=== PATIENT | female | born 1960 | race Caucasian/White ===

== ENCOUNTER 2017-05-14 20:28 | Emergency (ER) | payer OTHER ==
[~2017-05-14] VITALS: Ht 154.9 cm; Wt 71.2 kg
[~2017-05-14 20:28] MED LIST: GLIP10TA3 PO; METF1000 PO
[2017-05-14 20:45] VITALS: BP 130/67
--- NOTE | 2017-05-14 20:59 | NUR ---
Patient being taken to XRAY via wheelchair per tech.
--- NOTE | 2017-05-14 21:10 | NUR ---
Patient taken to bed 06 from XRAY via wheelchair per tech.
--- NOTE | 2017-05-14 21:15 | NUR ---
PATIENT PRESENTS TO ED WITH C/O RT LEG PAIN . PT DENIES N/V/D; SKIN IS PINK/WARM/DRY; AAOX4 WITH EVEN AND STEADY GAIT; LUNGS CLEAR BL; HR EVEN AND REGULAR; PT DENIES ANY FEVER, CP, SOB, OR COUGH AT THIS TIME; PATIENT STATES PAIN OF 9/10 AT THIS TIME; VSS; PATIENT POSITIONED FOR COMFORT; HOB ELEVATED; BEDRAILS UP X2; BED DOWN. ER MD MADE AWARE OF PT STATUS.
--- NOTE | 2017-05-14 22:03 | NUR ---
Dr. Arenas evaluating patient at bedside.
[2017-05-14] MEDS ORDERED: IBUPROFEN 600 MG TAB PO ONE (22:10)
--- NOTE | 2017-05-14 22:25 | NUR ---
Patient discharged with v/s stable. Written and verbal after care instructions given and explained. Patient alert, oriented and verbalized understanding of instructions. Ambulatory with to car. All questions addressed prior to discharge. ID band removed. Patient advised to follow up with PMD. Rx of MOTRIN given. Patient educated on indication of medication including possible reaction and side effects. Opportunity to ask questions provided and answered.
[2017-05-14 22:49] VITALS: BP 130/67
== END 2017-05-14 22:25 | disposition home or self-care (01) ==
LOC: MED 20:28
DX: S43.51XA Sprain of right acromioclavicular joint, initial encounter (principal); S83.91XA Sprain of unspecified site of right knee, initial encounter; S93.401A Sprain of unspecified ligament of right ankle, initial encounter; E11.9 Type 2 diabetes mellitus without complications; Z79.84 Long term (current) use of oral hypoglycemic drugs; W19.XXXA Unspecified fall, initial encounter; Y93.89 Activity, other specified; Y92.89 Other specified places as the place of occurrence of the external cause; Y99.8 Other external cause status
CPT/HCPCS: 73030; 73562; 73610; 99284

== ENCOUNTER 2017-05-28 21:01 | Emergency (ER) | payer OTHER ==
[~2017-05-28] VITALS: Ht 154.9 cm; Wt 69.4 kg
[2017-05-28 21:25] VITALS: BP 138/71
--- NOTE | 2017-05-28 23:02 | NUR ---
TO ER BED 7
--- NOTE | 2017-05-28 23:19 | NUR ---
Patient being evaluated by physician at bedside.
--- NOTE | 2017-05-28 23:30 | NUR ---
56Y/F PT. PERSENTS TO ED WITH C/O RT. LEG WOUND X 3 WKS. HX. DM. AAO X4, AMBULATORY WITH STEADY GAIT. RT. LEG CHRONIC WOUND, NO DRAINAGE. C/O PAIN 06/10. VSS, ER MADE AWARE OF PT. STATUS.
--- NOTE | 2017-05-29 | NUR ---
Patient discharged with v/s stable. Written and verbal after care instructions given and explained. Patient alert, oriented and verbalized understanding of instructions. Ambulatory with steady gait. All questions addressed prior to discharge. ID band removed. Patient advised to follow up with PMD. Rx of HYDROCORTISONE 2.5% TOPICAL OINTMENT, BACTRIM DS 800/160 MG given. Patient educated on indication of medication including possible reaction and side effects. Opportunity to ask questions provided and answered.
[2017-05-29 00:07] VITALS: BP 138/71
== END 2017-05-29 | disposition home or self-care (01) ==
LOC: MED 21:01
DX: L03.115 Cellulitis of right lower limb (principal); R03.0 Elevated blood-pressure reading, without diagnosis of hypertension; E11.9 Type 2 diabetes mellitus without complications
CPT/HCPCS: 82948; 99283

== ENCOUNTER 2017-09-08 22:39 | Emergency (ER) | payer OTHER ==
[~2017-09-08] VITALS: Ht 154.9 cm; Wt 76.0 kg
[2017-09-08 22:54] VITALS: BP 146/74
--- NOTE | 2017-09-08 23:50 | NUR ---
TO ER OF1
--- NOTE | 2017-09-08 23:52 | NUR ---
56Y F BIB FAMILY C/O RASH TO LOWER AB X 15 DAYS. PT DENIES ANY N/V/D, SOB, CP AT THE MOMENT; PT STATES AREA IS ITCHY. 3/10 PAIN. PT AAOX4, BREATHING IS EVEN AND UNLABORED. PT AMBULATED TO OF CHAIR WITH STEADY GAIT
[2017-09-09 00:04] LABS: BASOPHILS # (AUTO) 0.1 K/uL (0.00-0.22); BASOPHILS % (AUTO) 1.2 % (0.0-2.0); EOSINOPHILS # (AUTO) 0.1 K/uL (0-0.4); EOSINOPHILS % (AUTO) 1.3 % (0.0-4.0); HEMATOCRIT 41.1 % (36-48); LYMPHOCYTES # (AUTO) 2.2 K/uL (2.5-16.5); LYMPHOCYTES % (AUTO) 22.5 % (20.5-51.1); MEAN CORPUSCULAR HEMOGLOBIN 29 pg (27-31); MEAN CORPUSCULAR HGB CONC 34 g/dL (33-37); MEAN CORPUSCULAR VOLUME 84 fL (80-94); MONOCYTES # (AUTO) 0.6 K/uL (0.8-1.0); NEUTROPHILS # (AUTO) 6.7 K/uL (1.8-7.7); PLATELET COUNT (AUTO) 260 K/uL (140-450); RED BLOOD CELL COUNT(AUTO) 4.88 MIL/uL (4.20-5.40); RED CELL DISTRIBUTION WIDTH 12.7 % (11.6-13.7); WHITE BLOOD COUNT (AUTO) 9.7 K/uL (4.8-10.8)
[2017-09-09 00:25] LABS: ALBUMIN 3.6 g/dL (3.4-5.0); ANION GAP 12.2 (8-16); CARBON DIOXIDE 24.7 mmol/L (21-32); CREATININE 0.8 mg/dL (0.6-1.3); POTASSIUM 3.9 mmol/L (3.5-5.1); TOTAL BILIRUBIN 0.3 mg/dL (0.0-1.0)
[2017-09-09 01:05] LABS: APPEARANCE,URINE CLEAR (CLEAR); BILIRUBIN,URINE NEGATIVE (NEGATIVE); BLOOD, URINE NEGATIVE (NEGATIVE); COLOR,URINE YELLOW (YELLOW); LEUKOCYTE ESTERASE ,URINE NEGATIVE (NEGATIVE); NITRITE, URINE NEGATIVE (NEGATIVE); UGLUCOSE 3+ (NEGATIVE)
[2017-09-09 01:18] LABS: RBC,URINE 0-5 (RARE) /HPF (0-5); WBC,URINE 0-5 (RARE) /HPF (0-5)
--- NOTE | 2017-09-09 01:19 | NUR ---
MOVED PT TO ER BED 2
--- NOTE | 2017-09-09 02:25 | NUR ---
Patient discharged with v/s stable. Written and verbal after care instructions given and explained. Patient alert, oriented and verbalized understanding of instructions. Ambulatory with steady gait. All questions addressed prior to discharge. ID band removed. Patient advised to follow up with PMD. Rx of CLOTRIMAZOLE 1% CRM given. Patient educated on indication of medication including possible reaction and side effects. Opportunity to ask questions provided and answered.
[2017-09-09 02:26] VITALS: BP 121/72
== END 2017-09-09 02:26 | disposition home or self-care (01) ==
LOC: MED 22:39
DX: B37.89 Other sites of candidiasis (principal); E11.9 Type 2 diabetes mellitus without complications; F17.210 Nicotine dependence, cigarettes, uncomplicated; Z90.49 Acquired absence of other specified parts of digestive tract; Z79.4 Long term (current) use of insulin; Z79.899 Other long term (current) drug therapy
CPT/HCPCS: 36415; 80053; 81001; 82948; 83690; 85025; 99284

== ENCOUNTER 2017-10-07 17:54 | Emergency (ER) | payer OTHER ==
[~2017-10-07] VITALS: Ht 157.5 cm; Wt 73.0 kg
[2017-10-07 19:29] VITALS: BP 115/65
[2017-10-07] MEDS ORDERED: BACITRACIN OINT 500 UNITS/GM PKT TP ONE (23:33)
[2017-10-08 01:11] VITALS: BP 118/73
== END 2017-10-08 01:11 | disposition home or self-care (01) ==
LOC: MED 17:54
DX: L60.0 Ingrowing nail (principal); E11.9 Type 2 diabetes mellitus without complications
CPT/HCPCS: 11730; 99283

== ENCOUNTER 2017-10-15 04:40 | Emergency (ER) | payer OTHER ==
[~2017-10-15] VITALS: Ht 154.9 cm; Wt 71.2 kg
[2017-10-15 04:47] VITALS: BP 120/71
--- NOTE | 2017-10-15 04:56 | NUR ---
PT TAKEN TO BED 2
[2017-10-15] MEDS ORDERED: DIAZEPAM PFS 10 MG/2 ML SYR IM ONE (05:05)
--- NOTE | 2017-10-15 05:05 | NUR ---
PT C/O CHEST PAIN S/P GETTING ANGRY AT DAUGHTER. PT IS TEARFUL AND STATES SHE IS "ANGRY W/ DAUGHTER FOR NOT EATING OR SLEEPING". PAIN IS SEVERE TO CHEST, NON RADIATING, 07/10. PT DENIES SOB, N/V/D. PT POSITIONED FOR COMFORT, ER MD AWARE OF PT STATUS.
[2017-10-15] MEDS ORDERED: DIAZEPAM PFS 10 MG/2 ML SYR ONE (05:17)
[2017-10-15 05:55] VITALS: BP 100/65
--- NOTE | 2017-10-15 05:55 | NUR ---
Patient discharged with v/s stable. Written and verbal after care instructions given and explained. Patient alert, oriented and verbalized understanding of instructions. Ambulatory with steady gait. All questions addressed prior to discharge. ID band removed. Patient advised to follow up with PMD. Rx of VALIUM 5MG given. Patient educated on indication of medication including possible reaction and side effects. Opportunity to ask questions provided and answered.
== END 2017-10-15 05:55 | disposition home or self-care (01) ==
LOC: MED 04:40
DX: F41.9 Anxiety disorder, unspecified (principal); E11.9 Type 2 diabetes mellitus without complications; Z79.84 Long term (current) use of oral hypoglycemic drugs; Z79.899 Other long term (current) drug therapy
CPT/HCPCS: 93005; 96372; 99283; J3360

== ENCOUNTER 2017-11-24 02:21 | Emergency (ER) | payer OTHER ==
[~2017-11-24] VITALS: Ht 154.9 cm; Wt 71.2 kg
[2017-11-24 02:31] VITALS: BP 115/56
--- NOTE | 2017-11-24 02:37 | NUR ---
pt ambulated to er bed 01
--- NOTE | 2017-11-24 02:37 | NUR ---
56/F CAME IN W C/O PRODUCTIVE COUGH X 4 DAYS. PT REPORTS WHITE PHLEGM, DENIES SOB/CP, FEVER/CHILLS, DENIES N/V/D. ALL LUNG SOUNDS CBTA, 18RR EVEN AND UNLABORED. PMH: DM
[2017-11-24 02:53] LABS: APPEARANCE,URINE HAZY (CLEAR); BILIRUBIN,URINE NEGATIVE (NEGATIVE); BLOOD, URINE NEGATIVE (NEGATIVE); COLOR,URINE YELLOW (YELLOW); LEUKOCYTE ESTERASE ,URINE NEGATIVE (NEGATIVE); NITRITE, URINE POSITIVE (NEGATIVE); UGLUCOSE 3+ (NEGATIVE)
[2017-11-24 03:09] LABS: RBC,URINE 0-5 (RARE) /HPF (0-5); YEAST,URINE Few /HPF (None Seen)
--- NOTE | 2017-11-24 03:30 | NUR ---
Patient discharged with v/s stable. Written and verbal after care instructions given and explained. Patient alert, oriented and verbalized understanding of instructions. Ambulatory with steady gait. All questions addressed prior to discharge. ID band removed. Patient advised to follow up with PMD. Rx of IBUPROFEN, CODEINE/PROMETHAZINE AND CIPROFLAXACIN given. Patient educated on indication of medication including possible reaction and side effects. Opportunity to ask questions provided and answered.
[2017-11-24 03:32] VITALS: BP 123/76
--- NOTE | 2017-11-26 16:00 | NUR ---
ADDENDUM: URINE CX RESULTS:E. COLI,MDRO. REFERRED TO DR. CASTILLO. NO FARTHER TX., PATIENT DISCHARGED WITH PRESCRIPTION OF CIPRO
== END 2017-11-24 03:30 | disposition home or self-care (01) ==
LOC: MED 02:21
DX: J06.9 Acute upper respiratory infection, unspecified (principal); N39.0 Urinary tract infection, site not specified; F17.210 Nicotine dependence, cigarettes, uncomplicated; E11.9 Type 2 diabetes mellitus without complications; Z90.49 Acquired absence of other specified parts of digestive tract; Z79.84 Long term (current) use of oral hypoglycemic drugs; Z79.899 Other long term (current) drug therapy
CPT/HCPCS: 71045; 81001; 81025; 82948; 87086; 87186; 99285

== ENCOUNTER 2018-08-29 15:44 | Emergency (ER) | payer OTHER ==
[~2018-08-29] VITALS: Ht 160 cm; Wt 89.8 kg
[2018-08-29 15:57] VITALS: BP 141/93
[2018-08-29] MEDS: NACL 0.9% 1,000 ML IV ONE ×2 (16:35→17:50)
[2018-08-29] MEDS: ASPIRIN 81 MG TAB.CHEW PO ONE (16:35)
[2018-08-29 17:01] LABS: BASOPHILS # (AUTO) 0.1 K/uL (0.00-0.22); BASOPHILS % (AUTO) 0.7 % (0.0-2.0); EOSINOPHILS # (AUTO) 0.1 K/uL (0-0.4); EOSINOPHILS % (AUTO) 1.6 % (0.0-4.0); HEMATOCRIT 42.3 % (36-48); HEMOGLOBIN 14.2 g/dL (12.0-16.0); LYMPHOCYTES % (AUTO) 24.1 % (20.5-51.1); MEAN CORPUSCULAR HEMOGLOBIN 29 pg (27-31); MEAN CORPUSCULAR HGB CONC 34 g/dL (33-37); MEAN CORPUSCULAR VOLUME 85.5 fL (80-94); MONOCYTES # (AUTO) 0.5 K/uL (0.8-1.0); MONOCYTES % (AUTO) 6.4 % (1.7-9.3); NEUTROPHILS # (AUTO) 5.6 K/uL (1.8-7.7); NEUTROPHILS % (AUTO) 67.2 % (42.2-75.2); PLATELET COUNT (AUTO) 240 K/uL (140-450); RED BLOOD CELL COUNT(AUTO) 4.95 MIL/uL (4.20-5.40); RED CELL DISTRIBUTION WIDTH 13.4 % (11.6-13.7); WHITE BLOOD COUNT (AUTO) 8.4 K/uL (4.8-10.8)
[2018-08-29 17:24] LABS: ALBUMIN 3.5 g/dL (3.4-5.0); ANION GAP 16.9 (8-16); CARBON DIOXIDE 24.7 mmol/L (21-32); CREATININE 0.7 mg/dL (0.6-1.3); POTASSIUM 4.6 mmol/L (3.5-5.1); TOTAL BILIRUBIN 0.4 mg/dL (0.0-1.0)
[2018-08-29 17:26] LABS: PROTHROMBIN TIME 9.7 secs (10.8-13.4)
[2018-08-29] MEDS: INSULIN REGULAR, HUMAN 100 UNIT/ML VIAL IV ONE (18:10)
[2018-08-29 18:40] VITALS: BP 137/82
== END 2018-08-29 18:40 | disposition home or self-care (01) ==
LOC: MED 15:44
DX: E11.65 Type 2 diabetes mellitus with hyperglycemia (principal); Z79.84 Long term (current) use of oral hypoglycemic drugs
CPT/HCPCS: 36415; 71045; 80053; 82948; 84484; 85025; 85610; 85730; 93005; 96361; 96374; 99284; J1815; J7030; Q0092; 81002

== ENCOUNTER 2018-11-03 19:21 | Emergency (ER) | payer OTHER ==
[~2018-11-03] VITALS: Ht 154.9 cm; Wt 71.2 kg
[2018-11-03 19:26] VITALS: BP 132/66
--- NOTE | 2018-11-03 19:33 | NUR ---
PT AMBULATED TO LOBBY WITH VSS.
--- NOTE | 2018-11-03 19:51 | NUR ---
PT AMBULATED TO BED 12.
--- NOTE | 2018-11-03 19:54 | NUR ---
PT BIB FAMILY FOR L EYE PAIN X2 DAYS. PT REPORTS ITCHY PAIN AT 7/10. R EYE IS RED WITH THICK WHITE DRAINAGE VISIBIBLE NEAR LACRIMAL DUCT. NO FORIENG OBJECT VISIBLE IN EYE, PERRLA. PT REPORTS DM II, AND STATES HER LAST BS WAS 600 AFTER SHE ATE. PT RESPIRATORY RATE SYMMETRICAL, NON-LABORED. PT DENIES FREQUENT URINATION. ER MD TO SEE PT. SIDE RAIL UP X1, BED IN LOWEST POSITION, WILL CONTINUE TO MONITOR. MEDHX: DM II RX: INSULIN, METFORMIN, GLIPIZIDE
[2018-11-03 20:46] VITALS: BP 132/66
--- NOTE | 2018-11-03 20:46 | NUR ---
Patient discharged with v/s stable. Written and verbal after care instructions given and explained. Patient alert, oriented and verbalized understanding of instructions. Ambulatory with steady gait. All questions addressed prior to discharge. ID band removed. Patient advised to follow up with PMD. Rx of valtrex and ciproflaxacin given. Patient educated on indication of medication including possible reaction and side effects. Opportunity to ask questions provided and answered.
== END 2018-11-03 20:46 | disposition home or self-care (01) ==
LOC: MED 19:21
DX: H10.9 Unspecified conjunctivitis (principal); A60.09 Herpesviral infection of other urogenital tract; E11.9 Type 2 diabetes mellitus without complications; Z79.84 Long term (current) use of oral hypoglycemic drugs
CPT/HCPCS: 82948; 99283

== ENCOUNTER 2019-01-11 21:35 | Emergency (ER) | payer OTHER ==
[~2019-01-11] VITALS: Ht 160 cm; Wt 72.1 kg
[2019-01-11 21:45] VITALS: BP 147/67
[2019-01-11 22:16] LABS: APPEARANCE,URINE CLEAR (CLEAR); BILIRUBIN,URINE NEGATIVE (NEGATIVE); BLOOD, URINE NEGATIVE (NEGATIVE); COLOR,URINE YELLOW (YELLOW); LEUKOCYTE ESTERASE ,URINE NEGATIVE (NEGATIVE); NITRITE, URINE POSITIVE (NEGATIVE); UGLUCOSE 3+ (NEGATIVE)
[2019-01-11 22:38] LABS: RBC,URINE 0-5 /HPF (0-5)
[2019-01-11 22:39] LABS: URINE AMORPHOUS URATE 1+ /HPF (None Seen)
[2019-01-11 22:50] LABS: BASOPHILS # (AUTO) 0.1 K/uL (0.00-0.22); BASOPHILS % (AUTO) 0.7 % (0.0-2.0); EOSINOPHILS # (AUTO) 0.2 K/uL (0-0.4); EOSINOPHILS % (AUTO) 1.9 % (0.0-4.0); HEMATOCRIT 41.7 % (36-48); HEMOGLOBIN 14.2 g/dL (12.0-16.0); LYMPHOCYTES % (AUTO) 21.9 % (20.5-51.1); MEAN CORPUSCULAR HEMOGLOBIN 30 pg (27-31); MEAN CORPUSCULAR HGB CONC 34 g/dL (33-37); MEAN CORPUSCULAR VOLUME 87.3 fL (80-94); MONOCYTES # (AUTO) 0.5 K/uL (0.8-1.0); MONOCYTES % (AUTO) 5.9 % (1.7-9.3); NEUTROPHILS # (AUTO) 6.2 K/uL (1.8-7.7); NEUTROPHILS % (AUTO) 69.6 % (42.2-75.2); PLATELET COUNT (AUTO) 256 K/uL (140-450); RED BLOOD CELL COUNT(AUTO) 4.78 MIL/uL (4.20-5.40); RED CELL DISTRIBUTION WIDTH 13.5 % (11.6-13.7)
--- NOTE | 2019-01-11 23:02 | NUR ---
PT AMBULATED TO BED 12
--- NOTE | 2019-01-11 23:05 | NUR ---
PT BIB C/O ABD PAIN. PT STATES SUDDEN ONSET OF LOWER ABD PAIN X5 DAYS, 8/10 BURNING PAIN, NON RADIATIING. DENIES TRAUMA. BOWEL SOUNDS ACTIVE X4 QUAD. CHEST RISE AND FALL EQUAL BL. PT ACTING APPROPRIATLY. SKIN WARM, DRY AND INTACT. PT IN GOWN IN BED; BED IN LOWER LOCKED POSITION. ER MD AWARE OF PT STATUS. WILL CONTINUE TO MONITOR. PMH: DM RX: METFORMIN, INSULIN, GLIPIZIDE
[2019-01-11 23:17] LABS: ALBUMIN 3.7 g/dL (3.4-5.0); ANION GAP 17.6 (8-16); CARBON DIOXIDE 21.7 mmol/L (21-32); CREATININE 0.8 mg/dL (0.6-1.3); POTASSIUM 4.3 mmol/L (3.5-5.1); TOTAL BILIRUBIN 0.4 mg/dL (0.0-1.0)
--- NOTE | 2019-01-12 00:19 | NUR ---
PT BACK IN ROOM FROM CT. SAFETY PRECAUTIONS IN PLACE.
[2019-01-12] MEDS ORDERED: NACL 0.9% 2,000 ML IV ONE (00:30)
[2019-01-12] MEDS ORDERED: cefTRIAXone 1,000 MG VIAL ONE (01:02)
[2019-01-12] MEDS ORDERED: INSULIN REGULAR, HUMAN 100 UNIT/ML VIAL SUBQ ONE (01:10)
--- NOTE | 2019-01-12 03:40 | NUR ---
Patient discharged with v/s stable. Patient acting appropriatly, states 3/10 pain at this time, patient states she is ready to go home. Written and verbal after care instructions given and explained. Patient alert, oriented and verbalized understanding of instructions. Ambulatory with steady gait. All questions addressed prior to discharge. ID band removed. Patient advised to follow up with PMD. Rx of Ciprofloxacin given. Patient educated on indication of medication including possible reaction and side effects. Opportunity to ask questions provided and answered.
[2019-01-12 04:33] VITALS: BP 129/73
== END 2019-01-12 03:40 | disposition home or self-care (01) ==
LOC: MED 21:35
DX: N39.0 Urinary tract infection, site not specified (principal); E11.65 Type 2 diabetes mellitus with hyperglycemia; Z90.49 Acquired absence of other specified parts of digestive tract; Z79.84 Long term (current) use of oral hypoglycemic drugs; Z79.899 Other long term (current) drug therapy
CPT/HCPCS: 36415; 36600; 74177; 80053; 81001; 81025; 82803; 83690; 85025; 87086; 87186; 96365; 96372; 99284; J0696; J1815; J7030; Q9967

== ENCOUNTER 2019-02-07 13:32 | Emergency (ER) | payer SELFPAY ==
--- NOTE | 2019-02-07 13:45 | NUR ---
LEFT WITHOUT BEING SEEN.
[2019-02-07 14:19] VITALS: BP 138/111
--- NOTE | 2019-02-07 14:26 | NUR ---
Note undone in EDM - 02/07/19 at 1536 by [email or web address] 58 y female bib family c/o non-productive cough, right ear pain 07/10, sore throat x 5 days. pt states it hurts to swallow. lungs clear bilaterally. +redness in back of throat. vss at this time. alert and oriented. bed is down, locked, bed rail x 1, ermd to see pt. med hx:dm, htn
== END 2019-02-07 13:45 | disposition left against medical advice (07) ==
LOC: MED 13:32
DX: H92.09 Otalgia, unspecified ear (principal); Z53.21 Procedure and treatment not carried out due to patient leaving prior to being seen by health care provider

== ENCOUNTER 2019-02-07 22:09 | Emergency (ER) | payer OTHER ==
[~2019-02-07] VITALS: Ht 157.5 cm; Wt 74.4 kg
[2019-02-07 22:14] VITALS: BP 154/75
--- NOTE | 2019-02-07 22:24 | NUR ---
PT AMBULATED WITH CRUTCHES TO BED 11 WITH
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
[2019-02-07] MEDS ORDERED: KETOROLAC 60 MG/2 ML VIAL IM ONE (23:00)
--- NOTE | 2019-02-07 23:35 | NUR ---
STITCH RUBBER AT PT BEDSIDE.
--- NOTE | 2019-02-07 23:42 | NUR ---
PT AMBUALTED TO THE RESTROOM INDEPENDENTLY, PT TOLERATED WELL.
[2019-02-07 23:49] LABS: BASOPHILS % (AUTO) 0.4 % (0.0-2.0); EOSINOPHILS # (AUTO) 0.1 K/uL (0-0.4); EOSINOPHILS % (AUTO) 1.1 % (0.0-4.0); HEMATOCRIT 39.5 % (36-48); HEMOGLOBIN 13.3 g/dL (12.0-16.0); LYMPHOCYTES # (AUTO) 1.8 K/uL (2.5-16.5); LYMPHOCYTES % (AUTO) 18.1 % (20.5-51.1); MEAN CORPUSCULAR HEMOGLOBIN 29 pg (27-31); MEAN CORPUSCULAR HGB CONC 34 g/dL (33-37); MEAN CORPUSCULAR VOLUME 85.8 fL (80-94); MONOCYTES # (AUTO) 0.8 K/uL (0.8-1.0); MONOCYTES % (AUTO) 7.9 % (1.7-9.3); NEUTROPHILS # (AUTO) 7.1 K/uL (1.8-7.7); NEUTROPHILS % (AUTO) 72.5 % (42.2-75.2); PLATELET COUNT (AUTO) 255 K/uL (140-450); RED CELL DISTRIBUTION WIDTH 13.4 % (11.6-13.7); WHITE BLOOD COUNT (AUTO) 9.8 K/uL (4.8-10.8)
[2019-02-08 00:04] LABS: ANION GAP 12.4 (8-16); CARBON DIOXIDE 26.9 mmol/L (21-32); CREATININE 0.7 mg/dL (0.6-1.3); POTASSIUM 4.3 mmol/L (3.5-5.1)
[2019-02-08 00:10] LABS: ALBUMIN 3.5 g/dL (3.4-5.0); TOTAL BILIRUBIN 0.7 mg/dL (0.0-1.0)
[2019-02-08 00:11] LABS: CHOL/HDL RATIO 3.2 (1-4.5)
[2019-02-08 00:18] VITALS: BP 154/75
--- NOTE | 2019-02-08 00:18 | NUR ---
Patient was discharged by dr. may with v/s stable. Written and verbal after care instructions given and explained. Patient is alert, oriented and verbalized understanding of instructions. Ambulatory with assitance by crutches with . All questions addressed prior to discharge. ID band removed. Patient advised to follow up with PMD. Rx of naprosyn was given. Patient educated on indication of medication including possible reaction and side effects. Opportunity to ask questions provided and answered.
== END 2019-02-08 00:18 | disposition home or self-care (01) ==
LOC: MED 22:09
DX: S29.011A Strain of muscle and tendon of front wall of thorax, initial encounter (principal); M25.561 Pain in right knee; E11.9 Type 2 diabetes mellitus without complications; Z79.84 Long term (current) use of oral hypoglycemic drugs; Z90.49 Acquired absence of other specified parts of digestive tract; W19.XXXA Unspecified fall, initial encounter; Y93.89 Activity, other specified; Y92.89 Other specified places as the place of occurrence of the external cause; Y99.8 Other external cause status
CPT/HCPCS: 36415; 71250; 80053; 80061; 83880; 85025; 96372; 99284; J1885; 93005

== ENCOUNTER 2019-04-16 23:31 | Emergency (ER) | payer OTHER ==
[~2019-04-16] VITALS: Ht 160 cm; Wt 72.6 kg
[2019-04-16 23:33] VITALS: BP 100/69
--- NOTE | 2019-04-16 23:35 | NUR ---
TO LOBBY AW/ BED AMBULATORY
--- NOTE | 2019-04-16 23:35 | NUR ---
58 Y/O FEMALE PRESENTS TO ED WITH REDNESS AND SCAB TO RIGHT ACHELES. PT STATES SKIN BUBBED ON SHOE. CAUSING PAIN. NO DRAINAGE. HX DM. VSS. ER MD AWARE. CONTINUE TO MONITOR.
--- NOTE | 2019-04-17 00:03 | NUR ---
PT AMBULATED TO BED 12
--- NOTE | 2019-04-17 01:10 | NUR ---
Dr. Brown examining patient.
[2019-04-17 01:20] VITALS: BP 138/77
--- NOTE | 2019-04-17 01:20 | NUR ---
DISCHARGE PAPERS GIVEN TO PT. NO C/O PAIN. VSS. RX OF ACETAMINOPHEN AND KEFLEX GIVEN. SIDE EFFECTS EXPLAINED. INSTRUCTED TO F/U WITH PCP AND WHEN TO RETURN TO ER. PT VERBALIZED UNDERSTANDING OF DC INSTRCUTIONS. ALL QUESTIONS ANSWERED.
== END 2019-04-17 01:20 | disposition home or self-care (01) ==
LOC: MED 23:31
DX: L03.115 Cellulitis of right lower limb (principal); E11.9 Type 2 diabetes mellitus without complications; Z98.890 Other specified postprocedural states; Z79.84 Long term (current) use of oral hypoglycemic drugs; Z79.899 Other long term (current) drug therapy
CPT/HCPCS: 82948; 99283

== ENCOUNTER 2020-01-04 22:52 | Emergency (ER) | payer OTHER ==
[~2020-01-04] VITALS: Ht 160 cm; Wt 70.8 kg
[2020-01-04 23:10] VITALS: BP 135/69
[2020-01-04 23:47] VITALS: BP 135/69
--- NOTE | 2020-01-04 23:47 | NUR ---
Patient assessed, treated, and discharged by Dr Rosenthal. Patient discharged with v/s stable. Written and verbal after care instructions about cellulitis given and explained. Patient alert, oriented and verbalized understanding of instructions. Ambulatory with steady gait. All questions addressed prior to discharge. ID band removed. Patient advised to follow up with PMD. Rx of keflex given. Patient educated on indication of medication including possible reaction and side effects. Opportunity to ask questions provided and answered.
== END 2020-01-04 23:47 | disposition home or self-care (01) ==
LOC: MED 22:52
DX: L03.116 Cellulitis of left lower limb (principal); E11.9 Type 2 diabetes mellitus without complications; F17.210 Nicotine dependence, cigarettes, uncomplicated; Z79.84 Long term (current) use of oral hypoglycemic drugs; Z71.6 Tobacco abuse counseling
CPT/HCPCS: 99283

== ENCOUNTER 2020-07-12 13:44 | Emergency (ER) | payer OTHER ==
[~2020-07-12] VITALS: Ht 160 cm; Wt 72.1 kg
[2020-07-12 13:50] VITALS: BP 133/63
--- NOTE | 2020-07-12 14:00 | NUR ---
59 Y/O F C/C LEFT WRIST PAIN X 3 DAYS. PER PT DENIES TRAUMA,FALL,SX, HX. ROM LIMITED/CMS WNL. NKA. HX DM. RX INSULIN,METFORMIN. NO NVD. SIDE RAIL X1
[2020-07-12] MEDS ORDERED: KETOROLAC 30 MG/ML VIAL IM ONE (14:20)
--- NOTE | 2020-07-12 14:28 | NUR ---
PT RESTING IN BED, SIDE RAIL X1
--- NOTE | 2020-07-12 14:30 | NUR ---
RAD AT BEDSIDE
[2020-07-12 15:06] VITALS: BP 130/60
== END 2020-07-12 15:06 | disposition home or self-care (01) ==
LOC: MED 13:44
DX: M11.232 Other chondrocalcinosis, left wrist (principal); E11.9 Type 2 diabetes mellitus without complications; Z79.84 Long term (current) use of oral hypoglycemic drugs
CPT/HCPCS: 29125; 73110; 96372; 99283; J1885; Q0092

== ENCOUNTER 2020-07-13 00:39 | Emergency (ER) | payer OTHER ==
[~2020-07-13] VITALS: Ht 160 cm; Wt 72.1 kg
[2020-07-13 00:44] VITALS: BP 134/80
--- NOTE | 2020-07-13 00:46 | NUR ---
To ED bed 07
--- NOTE | 2020-07-13 00:48 | NUR ---
59 year old female coming in for c/o left wrist pain x 3 days. states pain had idiopathic source. denies any injury or trauma. LUE cap refill < 3 seconds, CMS intact. denies any other injury or trauma. awaiting MSE. pmhx: GORGE chavarria
[2020-07-13 00:50] VITALS: BP 134/80
--- NOTE | 2020-07-13 01:03 | NUR ---
Dr. Figueroa examining patient.
--- NOTE | 2020-07-13 01:12 | NUR ---
PT PLACED IM ORTHO VELCRO THUMB SPIKA SPLINT. ERMD NOTIFIED
== END 2020-07-13 01:22 | disposition home or self-care (01) ==
LOC: MED 00:39
DX: M25.532 Pain in left wrist (principal); R03.0 Elevated blood-pressure reading, without diagnosis of hypertension; E11.9 Type 2 diabetes mellitus without complications; Z79.899 Other long term (current) drug therapy
CPT/HCPCS: 99283

== ENCOUNTER 2020-07-14 21:18 | Emergency (ER) | payer OTHER ==
[~2020-07-14] VITALS: Ht 160 cm; Wt 71.3 kg
[2020-07-14 21:31] VITALS: BP 134/69
--- NOTE | 2020-07-14 21:38 | NUR ---
59 y/o female bib self for left hand/arm swelling and pain. Per patient, "The pain and swelling has gotten worse, and I was just here 3 days ago. It feels like pins". Pain is a 10/10 sharp, acute pain that starting in the left wrist and radiates to the rest of the left arm. Facial grimacing is noted when patient attempts to move fingers Left hand non-pitting edema/swelling noted on the left hand/wrist and arm compared to the right hand/arm. ERMD made aware. Bed placed on the lowest position; HOB in upright position. PMH:Diabetes; history of three c-sections Meds: Metformin; Insulin; glipizide.
[2020-07-14] MEDS ORDERED: KETOROLAC 30 MG/ML VIAL IM ONE (22:00)
[2020-07-14] MEDS ORDERED: MORPHINE SULFATE 4 MG/ML SYR IM ONE (22:00)
--- NOTE | 2020-07-14 22:50 | NUR ---
Patient rates pain as a 7/10. She states, "My pain is a lot better now".
[2020-07-14 23:25] VITALS: BP 129/63
--- NOTE | 2020-07-14 23:25 | NUR ---
Patient discharged with v/s stable. Written and verbal after care instructions given and explained. Patient alert, oriented and verbalized understanding of instructions. Ambulatory with steady gait. All questions addressed prior to discharge. ID band removed. Patient advised to follow up with PMD. Rx of [place] 5-325 mg given. Patient educated on indication of medication including possible reaction and side effects. Opportunity to ask questions provided and answered.
== END 2020-07-14 23:25 | disposition home or self-care (01) ==
LOC: MED 21:18
DX: M06.9 Rheumatoid arthritis, unspecified (principal); E11.9 Type 2 diabetes mellitus without complications; Z98.890 Other specified postprocedural states; Z79.899 Other long term (current) drug therapy
CPT/HCPCS: 96372; 99284; J1885; J2270

== ENCOUNTER 2020-08-10 02:15 | Emergency (ER) | payer OTHER ==
[~2020-08-10] VITALS: Ht 157.5 cm; Wt 52.6 kg
[2020-08-10 02:23] VITALS: BP 117/55
[2020-08-10] MEDS ORDERED: HYDROcodone/APAP 5/325 MG 1 TAB TAB PO ONE (02:45)
[2020-08-10] MEDS ORDERED: KETOROLAC 30 MG/ML VIAL IM ONE (02:45)
[2020-08-10 03:53] VITALS: BP 114/62
== END 2020-08-10 03:53 | disposition home or self-care (01) ==
LOC: MED 02:15
DX: M79.651 Pain in right thigh (principal); E11.9 Type 2 diabetes mellitus without complications; F17.210 Nicotine dependence, cigarettes, uncomplicated; Z71.6 Tobacco abuse counseling; Z79.899 Other long term (current) drug therapy
CPT/HCPCS: 73552; 96372; 99283; J1885

== ENCOUNTER 2020-08-15 00:15 | Emergency (ER) | payer OTHER ==
[~2020-08-15] VITALS: Ht 160 cm; Wt 72.6 kg
[2020-08-15 00:29] VITALS: BP 146/72
[2020-08-15] MEDS ORDERED: KETOROLAC 30 MG/ML VIAL IM ONE (00:50)
[2020-08-15] MEDS ORDERED: HYDROcodone/APAP 5/325 MG 1 TAB TAB PO ONE (00:50)
[2020-08-15 01:27] VITALS: BP 140/70
== END 2020-08-15 01:27 | disposition home or self-care (01) ==
LOC: MED 00:15
DX: M54.41 Lumbago with sciatica, right side (principal); E11.9 Type 2 diabetes mellitus without complications; Z98.890 Other specified postprocedural states; Z79.4 Long term (current) use of insulin
CPT/HCPCS: 96372; 99283; J1885

== ENCOUNTER 2021-05-26 20:20 | Emergency (ER) | payer OTHER ==
[~2021-05-26] VITALS: Ht 157.5 cm; Wt 72.6 kg
[2021-05-26 21:06] VITALS: BP 121/70
--- NOTE | 2021-05-26 22:35 | NUR ---
PATIENT CALLED TO BE SEEN BY DR. BLOCK, NO RESPONSE. PATIENT LEFT WITHOUT BEING SEEN BY DR. BLOCK. NO FURTHER CARE PROVIDED FOR PATIENT.
--- NOTE | 2021-05-26 22:45 | NUR ---
CALLED FOR THE SECOND TIME , NO RESPONSE
--- NOTE | 2021-05-26 22:50 | NUR ---
CALLED FOR THE THIRD TIME , NO RESPONSE
[2021-05-27] MEDS ORDERED: ACET-10509 PO (00:13)
[2021-05-27] MEDS ORDERED: IBUP-1842 PO (00:13)
== END 2021-05-26 22:35 | disposition left against medical advice (07) ==
LOC: MED 20:20
DX: R51.9 Headache, unspecified (principal); Z53.21 Procedure and treatment not carried out due to patient leaving prior to being seen by health care provider

== ENCOUNTER 2021-05-26 22:56 | Emergency (ER) | payer OTHER ==
[~2021-05-26] VITALS: Ht 160 cm; Wt 72.6 kg
[2021-05-26 23:36] VITALS: BP 112/64
[2021-05-27] MEDS ORDERED: IBUP-1842 PO (00:13)
[2021-05-27] MEDS ORDERED: ACET-10509 PO (00:13)
--- NOTE | 2021-05-27 00:35 | NUR ---
NOVEL SWAB OBTAINED AND SENT TO LAB
[2021-05-27 00:39] VITALS: BP 112/64
--- NOTE | 2021-05-27 00:39 | NUR ---
Patient discharged with v/s stable. Written and verbal after care instructions given and explained. Patient alert, oriented and verbalized understanding of instructions. Ambulatory with steady gait. All questions addressed prior to discharge. ID band removed. Patient advised to follow up with PMD. Rx of TYLENOL AND IBUPROFEN given. Patient educated on indication of medication including possible reaction and side effects. Opportunity to ask questions provided and answered.
== END 2021-05-27 00:39 | disposition home or self-care (01) ==
LOC: MED 22:56
DX: M79.10 Myalgia, unspecified site (principal); Z20.822 Contact with and (suspected) exposure to COVID-19; R42 Dizziness and giddiness; R50.9 Fever, unspecified; E11.9 Type 2 diabetes mellitus without complications
CPT/HCPCS: 99283; U0003

== ENCOUNTER 2021-07-16 20:12 | Emergency (ER) | payer OTHER ==
[~2021-07-16] VITALS: Ht 160 cm; Wt 68.0 kg
[~2021-07-16 20:12] MED LIST changes: +ACET-10509 PO; +IBUP-1842 PO
[2021-07-16 20:19] VITALS: BP 142/78
[2021-07-16] MEDS ORDERED: CEPH-588 PO (23:42)
[2021-07-16] MEDS ORDERED: MICO2POW TP (23:42)
[2021-07-17 00:06] VITALS: BP 141/66
== END 2021-07-17 00:05 | disposition home or self-care (01) ==
LOC: MED 20:12
DX: L03.314 Cellulitis of groin (principal); B37.2 Candidiasis of skin and nail; E11.9 Type 2 diabetes mellitus without complications; I10 Essential (primary) hypertension; Z98.890 Other specified postprocedural states; Z79.899 Other long term (current) drug therapy; Z79.2 Long term (current) use of antibiotics; Z79.1 Long term (current) use of non-steroidal anti-inflammatories (NSAID)
CPT/HCPCS: 99281

== ENCOUNTER 2021-07-28 15:54 | Emergency (ER) | payer OTHER ==
[~2021-07-28] VITALS: Ht 160 cm; Wt 68.0 kg
[~2021-07-28 15:54] MED LIST changes: +CEPH-588 PO; +MICO2POW TP
[2021-07-28 15:59] VITALS: BP 111/54
--- NOTE | 2021-07-28 16:10 | NUR ---
Patient ambulated to bed 02 with steady/even gait
--- NOTE | 2021-07-28 16:15 | NUR ---
60 y/o F BIB self from home c/o mouth pain x 3 days. Patient states swelling and pain to R gumline for past 3 days. Pt reports she was at home when pain started. Pt states mouth pain 3/10, "pain/constant," non-radiating. Patient denies any drainage, bleeding, fever, chills, SOB, sore throat. Denies any medications prior to arrival. Bed locked in lowest position, side rails x 1, call light in reach. PMH/Sx/Meds: DM, HTN NKA
[2021-07-28] MEDS ORDERED: DOPPLER MC ONE (16:25)
[2021-07-28] MEDS ORDERED: LIDOCAINE MPF 1% 10 MG/ML VIAL INJ ONE (16:25)
[2021-07-28] MEDS ORDERED: AMOXIL/CLAVULANATE 875/125 MG 1 TAB PO ONE (16:25)
[2021-07-28] MEDS ORDERED: ACETAMINOPHEN 325 MG TAB PO ONE (16:25)
[2021-07-28] MEDS ORDERED: AMOX-1000 PO (16:38)
[2021-07-28] MEDS ORDERED: IBUP-2213 PO (16:38)
--- NOTE | 2021-07-28 16:55 | NUR ---
Patient states she feels better. Pain 0/10.
--- NOTE | 2021-07-28 17:03 | NUR ---
Patient discharged with v/s stable. Written and verbal after care instructions given and explained. Patient alert, oriented and verbalized understanding of instructions. Ambulatory with steady gait. All questions addressed prior to discharge. ID band removed. Patient advised to follow up with PMD. Rx of Amoxicillin/Potassium, Ibuprofen given. Patient educated on indication of medication including possible reaction and side effects. Opportunity to ask questions provided and answered.
== END 2021-07-28 17:03 | disposition home or self-care (01) ==
LOC: MED 15:54
DX: K05.319 Chronic periodontitis, localized, unspecified severity (principal); E11.9 Type 2 diabetes mellitus without complications; I10 Essential (primary) hypertension; Z98.890 Other specified postprocedural states; Z79.84 Long term (current) use of oral hypoglycemic drugs; Z79.899 Other long term (current) drug therapy
CPT/HCPCS: 41800; 87070; 87075; 87205; 99284; J2001; 10160

== ENCOUNTER 2021-08-05 23:41 | Emergency (ER) | payer OTHER ==
[~2021-08-05] VITALS: Ht 160 cm; Wt 68.0 kg
[~2021-08-05 23:41] MED LIST changes: +AMOX-1000 PO; +IBUP-2213 PO
[2021-08-06 00:23] VITALS: BP 146/56
--- NOTE | 2021-08-06 00:34 | NUR ---
PT IN RR COLLECTING CLEAN CATCH.
--- NOTE | 2021-08-06 01:33 | NUR ---
PT AMBULATED TO BED 11
[2021-08-06 01:45] LABS: APPEARANCE,URINE HAZY (CLEAR); BILIRUBIN,URINE NEGATIVE (NEGATIVE); BLOOD, URINE 1+ (NEGATIVE); COLOR,URINE YELLOW (YELLOW); LEUKOCYTE ESTERASE ,URINE NEGATIVE (NEGATIVE); NITRITE, URINE POSITIVE (NEGATIVE); UGLUCOSE 3+ (NEGATIVE)
--- NOTE | 2021-08-06 01:50 | NUR ---
PER PATIENT, HAS HAD UNPROVOKED PELVIC PAIN FOR 24 HOURS. DOES NOT HAVE ANY TRIGGERS, HAS NEVER HAD THIS KIND OF PAIN IN THE PAST. RATES PAIN 10/10. HAS NOT HAD MENSTRUAL PERIODS IN 13 YEARS, HAS NO VAGINAL BLEEDING, NO HEMATURIA. NORMAL BOWEL MOVEMENTS WITH NO BLOOD. NO SIGNS OF ACUTE DISTRESS. HAS ONLY TAKEN ACETAMINOPHEN 500 MG AT HOME. PMH: DM.
[2021-08-06 01:58] LABS: WBC,URINE 20-60 /HPF (0-5)
--- NOTE | 2021-08-06 02:12 | NUR ---
PT REPORT RECEIVED FROM SHAN DENNIS FOR CONTINUITY OF PT CARE AT THIS TIME.
--- NOTE | 2021-08-06 02:42 | NUR ---
PT REPORTS ONGOING PELVIC PAIN. ERMD MADE AWARE.
--- NOTE | 2021-08-06 02:43 | NUR ---
PT AMBULATED TO BATHROOM W STEADY GAIT.
[2021-08-06] MEDS ORDERED: KETOROLAC 60 MG/2 ML VIAL IM ONE (02:55)
--- NOTE | 2021-08-06 03:03 | NUR ---
Dr. Christopher examining patient.
[2021-08-06] MEDS ORDERED: CIPR500T4 PO (03:12)
[2021-08-06] MEDS ORDERED: ACET-8386 PO (03:12)
[2021-08-06] MEDS ORDERED: IBUP-2213 PO (03:12)
[2021-08-06 03:15] VITALS: BP 123/67
--- NOTE | 2021-08-06 03:15 | NUR ---
Patient discharged with v/s stable. Written and verbal after care instructions given and explained. Patient alert, oriented and verbalized understanding of instructions. Ambulatory with steady gait. All questions addressed prior to discharge. ID band removed. Patient advised to follow up with PMD. Rx of HYDROCODONE/ACETAMINOPHEN, CIPRO, IBUPROFEN given. Patient educated on indication of medication including possible reaction and side effects. Opportunity to ask questions provided and answered.
== END 2021-08-06 03:15 | disposition home or self-care (01) ==
LOC: MED 23:41
DX: N39.0 Urinary tract infection, site not specified (principal); E11.9 Type 2 diabetes mellitus without complications; I10 Essential (primary) hypertension; Z79.899 Other long term (current) drug therapy; Z79.84 Long term (current) use of oral hypoglycemic drugs; Z98.890 Other specified postprocedural states; Z90.49 Acquired absence of other specified parts of digestive tract
CPT/HCPCS: 81001; 87086; 99283; J1885; 81002

== ENCOUNTER 2021-08-20 21:41 | Emergency (ER) | payer OTHER ==
[~2021-08-20] VITALS: Ht 157.5 cm; Wt 73.5 kg
[~2021-08-20 21:41] MED LIST changes: +ACET-8386 PO; +CIPR500T4 PO
[2021-08-20 21:52] VITALS: BP 149/76
--- NOTE | 2021-08-20 21:56 | NUR ---
PT TAKEN TO BED #9
[2021-08-20] MEDS ORDERED: HYOSCYAMINE 0.125 MG TAB PO ONE (22:45)
[2021-08-20] MEDS ORDERED: DICYCLOMINE 10 MG CAP PO ONE (23:00)
[2021-08-20 23:06] LABS: BASOPHILS # (AUTO) 0.1 K/uL (0.00-0.22); BASOPHILS % (AUTO) 0.8 % (0.0-2.0); EOSINOPHILS # (AUTO) 0.2 K/uL (0-0.4); HEMATOCRIT 43.3 % (36-48); HEMOGLOBIN 14.9 g/dL (12.0-16.0); LYMPHOCYTES # (AUTO) 2.2 K/uL (2.5-16.5); LYMPHOCYTES % (AUTO) 26.5 % (20.5-51.1); MEAN CORPUSCULAR HEMOGLOBIN 29 pg (27-31); MEAN CORPUSCULAR HGB CONC 34 g/dL (33-37); MEAN CORPUSCULAR VOLUME 84.8 fL (80-94); MONOCYTES # (AUTO) 0.5 K/uL (0.8-1.0); MONOCYTES % (AUTO) 6.3 % (1.7-9.3); NEUTROPHILS # (AUTO) 5.3 K/uL (1.8-7.7); NEUTROPHILS % (AUTO) 64.4 % (42.2-75.2); PLATELET COUNT (AUTO) 263 K/uL (140-450); RED BLOOD CELL COUNT(AUTO) 5.11 MIL/uL (4.20-5.40); RED CELL DISTRIBUTION WIDTH 13.7 % (11.6-13.7); WHITE BLOOD COUNT (AUTO) 8.1 K/uL (4.8-10.8)
[2021-08-20 23:15] LABS: APPEARANCE,URINE CLEAR (CLEAR); BILIRUBIN,URINE NEGATIVE (NEGATIVE); BLOOD, URINE NEGATIVE (NEGATIVE); COLOR,URINE YELLOW (YELLOW); LEUKOCYTE ESTERASE ,URINE NEGATIVE (NEGATIVE); NITRITE, URINE POSITIVE (NEGATIVE); UGLUCOSE 3+ (NEGATIVE)
[2021-08-20 23:22] LABS: ALBUMIN 3.9 g/dL (3.4-5.0); ANION GAP 17.7 (8-16); CARBON DIOXIDE 24.3 mmol/L (21-32); CREATININE 0.8 mg/dL (0.6-1.3); TOTAL BILIRUBIN 0.3 mg/dL (0.0-1.0)
[2021-08-20 23:24] LABS: RBC,URINE 0-5 /HPF (0-5); WBC,URINE 0-5 /HPF (0-5)
[2021-08-20 23:25] LABS: YEAST,URINE Moderate /HPF (None Seen)
[2021-08-21] MEDS ORDERED: FLUCONAZOLE 100 MG TAB PO ONE (00:25)
[2021-08-21] MEDS ORDERED: AMOXIL/CLAVULANATE 875/125 MG 1 TAB PO ONE (00:25)
[2021-08-21] MEDS ORDERED: ACETAMINOPHEN EXTRA STRENGTH 500 MG TAB PO ONE (00:25)
[2021-08-21] MEDS ORDERED: NACL 0.9% 1,000 ML IV ONE (00:25)
[2021-08-21] MEDS ORDERED: BEN10 PO (02:03)
[2021-08-21] MEDS ORDERED: CEPH-588 PO (02:03)
[2021-08-21] MEDS ORDERED: FLUC200T PO (02:03)
[2021-08-21 02:08] VITALS: BP 132/72
--- NOTE | 2021-08-21 02:13 | NUR ---
PATIENT DC HOME FEELING WELL STABLE VITAL SIGNS IN NORMAL LIMITS NOT COMPLAINING OF PAIN ,DC INSTRUCTION GAVE AND EXPLAINED WE RECOMMEND TO FOLLOW UP WITH THE PCP OR COMING BACK TO ER IF THE SYMPTOMS DOESNT IMPROVING OR GET WORSE //Victoriano TORREZ
== END 2021-08-21 02:13 | disposition home or self-care (01) ==
LOC: MED 21:41
DX: B37.41 Candidal cystitis and urethritis (principal); E11.65 Type 2 diabetes mellitus with hyperglycemia; I10 Essential (primary) hypertension; Z79.899 Other long term (current) drug therapy; Z79.2 Long term (current) use of antibiotics; Z79.891 Long term (current) use of opiate analgesic; Z79.1 Long term (current) use of non-steroidal anti-inflammatories (NSAID)
CPT/HCPCS: 36415; 74176; 80053; 81001; 81002; 82948; 83690; 85025; 87086; 99284; J7030

== ENCOUNTER 2021-10-29 21:05 | Emergency (ER) | payer OTHER ==
[~2021-10-29] VITALS: Ht 160 cm; Wt 72.2 kg
[~2021-10-29 21:05] MED LIST changes: +BEN10 PO; +FLUC200T PO
[2021-10-29 21:53] VITALS: BP 132/61
--- NOTE | 2021-10-29 22:25 | NUR ---
SEEN AND EXAMINED BY ANTHONY
[2021-10-29] MEDS ORDERED: PENI500T20 PO (22:28)
[2021-10-29] MEDS ORDERED: NAPR-54 PO (22:28)
[2021-10-29 22:30] VITALS: BP 132/61
--- NOTE | 2021-10-29 22:30 | NUR ---
Patient discharged with v/s stable. Written and verbal after care instructions given and explained BY DR PARKS. Patient alert, oriented and verbalized understanding of instructions. Ambulatory with steady gait. All questions addressed prior to discharge. ID band removed. Patient advised to follow up with PMD. Rx of NAPROSYN given. Patient educated on indication of medication including possible reaction and side effects. Opportunity to ask questions provided and answered.
== END 2021-10-29 22:30 | disposition home or self-care (01) ==
LOC: MED 21:05
DX: K05.10 Chronic gingivitis, plaque induced (principal); E11.9 Type 2 diabetes mellitus without complications; F17.210 Nicotine dependence, cigarettes, uncomplicated; Z71.6 Tobacco abuse counseling; Z79.84 Long term (current) use of oral hypoglycemic drugs; Z79.899 Other long term (current) drug therapy; Z98.890 Other specified postprocedural states
CPT/HCPCS: 99282

== ENCOUNTER 2021-11-22 02:40 | Emergency (ER) | payer OTHER ==
[~2021-11-22] VITALS: Ht 160 cm; Wt 71.7 kg
[~2021-11-22 02:40] MED LIST changes: +NAPR-54 PO; +PENI500T20 PO
[2021-11-22 02:46] VITALS: BP 127/72
--- NOTE | 2021-11-22 02:50 | NUR ---
PATIENT BIB SELF FOR C/O LOWER ABDOMINAL PAIN X 2 DAYS. DENIES N/V/D.
--- NOTE | 2021-11-22 02:57 | NUR ---
DR PARKS AT BEDSIDE
[2021-11-22 03:11] VITALS: BP 127/72
--- NOTE | 2021-11-22 03:12 | NUR ---
Patient discharged with v/s stable. Written and verbal after care instructions given and explained. Patient verbalized understanding. Ambulatory with steady gait. All questions addressed prior to discharge. Advised to follow up with PMD.
== END 2021-11-22 03:12 | disposition home or self-care (01) ==
LOC: MED 02:40
DX: R10.30 Lower abdominal pain, unspecified (principal); E11.65 Type 2 diabetes mellitus with hyperglycemia; Z79.84 Long term (current) use of oral hypoglycemic drugs; Z79.899 Other long term (current) drug therapy; Z98.890 Other specified postprocedural states
CPT/HCPCS: 81002; 99282

== ENCOUNTER 2022-04-28 21:17 | Emergency (ER) | payer OTHER ==
[~2022-04-28] VITALS: Ht 167.6 cm; Wt 72.6 kg
[~2022-04-28 21:17] MED LIST changes: +METF-1274 PO; -METF1000 PO
--- NOTE | 2022-04-28 21:46 | NUR ---
Dr. Rosenthal examining patient.
[2022-04-28 21:47] VITALS: BP 136/73
--- NOTE | 2022-04-28 21:58 | NUR ---
Patient takent to radiology dept via wheel chair.
[2022-04-28 22:05] VITALS: BP 136/73
[2022-04-28] MEDS ORDERED: NAPR-54 PO (22:47)
--- NOTE | 2022-04-28 22:51 | NUR ---
patient cleared for discharge by . Discharge instructions and medication adminstration/side effects explained by Dr. Rosenthal. Rx NAPROSYN of provided.
== END 2022-04-28 22:51 | disposition home or self-care (01) ==
LOC: MED 21:17
DX: S93.492A Sprain of other ligament of left ankle, initial encounter (principal); E11.9 Type 2 diabetes mellitus without complications; Z79.4 Long term (current) use of insulin; Z79.899 Other long term (current) drug therapy; W18.30XA Fall on same level, unspecified, initial encounter; Y93.89 Activity, other specified; Y92.89 Other specified places as the place of occurrence of the external cause; Y99.8 Other external cause status
CPT/HCPCS: 29515; 72110; 73610; 99284

== ENCOUNTER 2022-05-25 23:40 | Emergency (ER) | payer OTHER ==
[~2022-05-25] VITALS: Ht 154.9 cm; Wt 72.6 kg
[2022-05-25 23:51] VITALS: BP 144/78
[2022-05-26 01:29] VITALS: BP 139/72
[2022-05-26] MEDS ORDERED: cefTRIAXone 1,000 MG in LIDOCAINE MPF 1% 2.1 ML IM ONE (01:35)
[2022-05-26] MEDS ORDERED: cefTRIAXone 1,000 MG VIAL ONE ×2 (01:43→01:44)
[2022-05-26] MEDS ORDERED: LIDOCAINE MPF 1% 5 ML ONE (01:44)
[2022-05-26] MEDS ORDERED: KETO2CRE3 TP (02:11)
[2022-05-26] MEDS ORDERED: CEPH-588 PO (02:11)
== END 2022-05-26 02:15 | disposition home or self-care (01) ==
LOC: MED 23:40
DX: L03.311 Cellulitis of abdominal wall (principal); B35.4 Tinea corporis; E11.9 Type 2 diabetes mellitus without complications; Z79.4 Long term (current) use of insulin; Z79.899 Other long term (current) drug therapy; Z90.49 Acquired absence of other specified parts of digestive tract; Z98.890 Other specified postprocedural states
CPT/HCPCS: 96372; 99283; J0696; J2001

== ENCOUNTER 2022-07-12 23:10 | Emergency (ER) | payer OTHER ==
[~2022-07-12] VITALS: Ht 160 cm; Wt 71.4 kg
[~2022-07-12 23:10] MED LIST changes: +KETO2CRE3 TP
[2022-07-12 23:22] VITALS: BP 139/68
--- NOTE | 2022-07-12 23:26 | NUR ---
pt to lobby
--- NOTE | 2022-07-12 23:49 | NUR ---
PT TO BED 3 AMBULATORY
--- NOTE | 2022-07-13 | NUR ---
PT C/O PIMPLE UNDER RIGHT LOWER EYE LID X 2 DAYS, DENIES ANY DOUBLE OR BLURRY VISION AT THIS TIME.
[2022-07-13] MEDS ORDERED: BACI1PAC6 TP (00:37)
[2022-07-13 01:04] VITALS: BP 134/66
== END 2022-07-13 01:00 | disposition home or self-care (01) ==
LOC: MED 23:10
DX: H00.032 Abscess of right lower eyelid (principal); E11.9 Type 2 diabetes mellitus without complications; F17.210 Nicotine dependence, cigarettes, uncomplicated; Z79.84 Long term (current) use of oral hypoglycemic drugs; Z79.899 Other long term (current) drug therapy; Z98.890 Other specified postprocedural states; Z90.49 Acquired absence of other specified parts of digestive tract
CPT/HCPCS: 99282

== ENCOUNTER 2022-09-20 20:05 | Emergency (ER) | payer OTHER ==
[~2022-09-20] VITALS: Ht 160 cm; Wt 72.6 kg
[~2022-09-20 20:05] MED LIST changes: -ACET-8386 PO; +ACET-8905 PO; +BACI-416 TP
[2022-09-20 20:15] VITALS: BP 119/59
--- NOTE | 2022-09-20 20:20 | NUR ---
SWABS COLLECTED. PT TO JEAN PIERRE.
[2022-09-20] MEDS ORDERED: IBUP-1842 PO (20:48)
[2022-09-20] MEDS ORDERED: BROM118S65 PO (20:48)
== END 2022-09-20 21:00 | disposition home or self-care (01) ==
LOC: MED 20:05
DX: J06.9 Acute upper respiratory infection, unspecified (principal); Z20.822 Contact with and (suspected) exposure to COVID-19; E11.9 Type 2 diabetes mellitus without complications; Z90.49 Acquired absence of other specified parts of digestive tract; Z98.890 Other specified postprocedural states; Z79.84 Long term (current) use of oral hypoglycemic drugs; Z79.899 Other long term (current) drug therapy
CPT/HCPCS: 99283

== ENCOUNTER 2022-09-25 20:18 | Emergency (ER) | payer OTHER ==
[~2022-09-25] VITALS: Ht 160 cm; Wt 71.7 kg
[~2022-09-25 20:18] MED LIST changes: +BROM118S65 PO
[2022-09-25 20:24] VITALS: BP 131/64
--- NOTE | 2022-09-25 20:27 | NUR ---
TO LOBBY A/W BED AMBULATORY
[2022-09-25 20:57] LABS: APPEARANCE,URINE SL CLOUDY (CLEAR); BILIRUBIN,URINE NEGATIVE (NEGATIVE); BLOOD, URINE TRACE-I (NEGATIVE); COLOR,URINE YELLOW (YELLOW); LEUKOCYTE ESTERASE ,URINE NEGATIVE (NEGATIVE); NITRITE, URINE POSITIVE (NEGATIVE); UGLUCOSE 3+ (NEGATIVE)
[2022-09-25 21:00] LABS: BASOPHILS # (AUTO) 0.1 K/uL (0.00-0.22); BASOPHILS % (AUTO) 0.9 % (0.0-2.0); EOSINOPHILS # (AUTO) 0.1 K/uL (0-0.4); EOSINOPHILS % (AUTO) 1.1 % (0.0-4.0); HEMATOCRIT 40.9 % (36-48); LYMPHOCYTES # (AUTO) 2.4 K/uL (2.5-16.5); LYMPHOCYTES % (AUTO) 22.2 % (20.5-51.1); MEAN CORPUSCULAR HEMOGLOBIN 29 pg (27-31); MEAN CORPUSCULAR HGB CONC 34 g/dL (33-37); MEAN CORPUSCULAR VOLUME 85.6 fL (80-94); MONOCYTES # (AUTO) 0.8 K/uL (0.8-1.0); MONOCYTES % (AUTO) 7.7 % (1.7-9.3); NEUTROPHILS # (AUTO) 7.2 K/uL (1.8-7.7); NEUTROPHILS % (AUTO) 68.1 % (42.2-75.2); PLATELET COUNT (AUTO) 268 K/uL (140-450); RED BLOOD CELL COUNT(AUTO) 4.77 MIL/uL (4.20-5.40); RED CELL DISTRIBUTION WIDTH 13.4 % (11.6-13.7); WHITE BLOOD COUNT (AUTO) 10.6 K/uL (4.8-10.8)
[2022-09-25 21:12] LABS: RBC,URINE 0-5 /HPF (0-5)
[2022-09-25 21:13] LABS: OTHER CASTS, URINE None Seen /LPF (None Seen)
[2022-09-25 21:20] LABS: ALBUMIN 3.5 g/dL (3.4-5.0); ANION GAP 15.6 (8-16); CARBON DIOXIDE 25.7 mmol/L (21-32); CREATININE 1.1 mg/dL (0.6-1.3); POTASSIUM 4.3 mmol/L (3.5-5.1); TOTAL BILIRUBIN 0.5 mg/dL (0.0-1.0)
[2022-09-26] MEDS ORDERED: METH4TAB1 PO (00:16)
[2022-09-26 00:25] VITALS: BP 131/64
--- NOTE | 2022-09-26 00:25 | NUR ---
Patient discharged with v/s stable. Written and verbal after care instructions given and explained. Patient alert, oriented and verbalized understanding of instructions. Ambulatory with steady gait. All questions addressed prior to discharge. ID band removed. Patient advised to follow up with PMD. Rx of MEDROL given. Patient educated on indication of medication including possible reaction and side effects. Opportunity to ask questions provided and answered.
== END 2022-09-26 00:25 | disposition home or self-care (01) ==
LOC: MED 20:18
DX: J20.9 Acute bronchitis, unspecified (principal); E11.9 Type 2 diabetes mellitus without complications; Z79.4 Long term (current) use of insulin; Z79.899 Other long term (current) drug therapy
CPT/HCPCS: 36415; 71045; 80053; 81001; 83605; 83690; 85025; 87040; 87086; 99284

== ENCOUNTER 2022-10-03 21:37 | Emergency (ER) | payer OTHER ==
[~2022-10-03] VITALS: Ht 157.5 cm; Wt 71.7 kg
[~2022-10-03 21:37] MED LIST changes: +METH4TAB1 PO
[2022-10-03 21:40] VITALS: BP 140/81
--- NOTE | 2022-10-03 21:43 | NUR ---
TO LOBBY A/W BED AMBULATORY
--- NOTE | 2022-10-03 23:33 | NUR ---
PT RETURN FROM XRAY
[2022-10-04] MEDS ORDERED: ALBU0.0912 IH (00:38)
[2022-10-04] MEDS ORDERED: BENZ200C4 PO (00:38)
--- NOTE | 2022-10-04 00:40 | NUR ---
Patient discharged with v/s stable. Written and verbal after care instructions given and explained. Patient alert, oriented and verbalized understanding of instructions. Ambulatory with steady gait. All questions addressed prior to discharge. ID band removed. Patient advised to follow up with PMD. Rx of BENZONATATE AND ALBUTEROL given. Patient educated on indication of medication including possible reaction and side effects. Opportunity to ask questions provided and answered.
== END 2022-10-04 00:40 | disposition home or self-care (01) ==
LOC: MED 21:37
DX: J98.01 Acute bronchospasm (principal); E11.9 Type 2 diabetes mellitus without complications; F17.210 Nicotine dependence, cigarettes, uncomplicated; Z79.899 Other long term (current) drug therapy; Z79.84 Long term (current) use of oral hypoglycemic drugs
CPT/HCPCS: 71045; 99283

== ENCOUNTER 2022-11-25 02:03 | Emergency (ER) | payer OTHER ==
[~2022-11-25] VITALS: Ht 160 cm; Wt 71.7 kg
[~2022-11-25 02:03] MED LIST changes: +ALBU0.0912 IH; +BENZ200C4 PO
[2022-11-25 02:15] VITALS: BP 156/90
--- NOTE | 2022-11-25 02:41 | NUR ---
TO LOBBY FOLLOWING TRIAGE
[2022-11-25] MEDS ORDERED: GABA100C PO (03:10)
--- NOTE | 2022-11-25 03:20 | NUR ---
Patient discharged with v/s stable. Written and verbal after care instructions given and explained. Patient alert, oriented and verbalized understanding of instructions. Ambulatory with steady gait. All questions addressed prior to discharge. ID band removed. Patient advised to follow up with PMD. Rx of NEURONTIN given. Patient educated on indication of medication including possible reaction and side effects. Opportunity to ask questions provided and answered.
== END 2022-11-25 03:20 | disposition home or self-care (01) ==
LOC: MED 02:03
DX: M79.672 Pain in left foot (principal); M79.671 Pain in right foot; G62.9 Polyneuropathy, unspecified; E11.9 Type 2 diabetes mellitus without complications; Z79.4 Long term (current) use of insulin; Z79.899 Other long term (current) drug therapy
CPT/HCPCS: 99283

== ENCOUNTER 2023-02-04 17:45 | Emergency (ER) | payer OTHER ==
[~2023-02-04] VITALS: Ht 160 cm; Wt 74.4 kg
[~2023-02-04 17:45] MED LIST changes: +GABA100C PO
[2023-02-04 17:57] VITALS: BP 136/71
[2023-02-04] MEDS ORDERED: BACTO TP (19:10)
[2023-02-04] MEDS ORDERED: CEPH-588 PO (19:10)
[2023-02-04] MEDS ORDERED: IBUP-1842 PO (19:10)
== END 2023-02-04 19:08 | disposition home or self-care (01) ==
LOC: MED 17:45
DX: L03.116 Cellulitis of left lower limb (principal); E11.9 Type 2 diabetes mellitus without complications; Z79.4 Long term (current) use of insulin; Z79.899 Other long term (current) drug therapy
CPT/HCPCS: 99283

== ENCOUNTER 2023-02-14 19:38 | Emergency (ER) | payer OTHER ==
[~2023-02-14] VITALS: Ht 160 cm; Wt 71.7 kg
[~2023-02-14 19:38] MED LIST changes: +BACTO TP
[2023-02-14 19:44] VITALS: BP 161/97
--- NOTE | 2023-02-14 19:44 | NUR ---
Patient taken to bed 7.
--- NOTE | 2023-02-14 19:45 | NUR ---
Patient BIB by ADARSH from home. C/O cough and shortness of breath x 2 days. Patient reported, had constant cough and shortness of breath for 2 days, no congestion, no fever. Oxygen sat 94-95 % RA, RR 17-22. PMHx: DENIES
--- NOTE | 2023-02-14 20:16 | NUR ---
Dr. Flores examining patient.
--- NOTE | 2023-02-14 20:22 | NUR ---
COVID-19 and flu swabs collected and sent to lab.
--- NOTE | 2023-02-14 21:07 | NUR ---
X-Ray at bedside.
[2023-02-14] MEDS ORDERED: AZITHROMYCIN 250 MG TAB PO ONE (21:40)
[2023-02-14] MEDS ORDERED: ALBU0.0912 INH (21:41)
[2023-02-14] MEDS ORDERED: AZIT250T4 PO (21:41)
[2023-02-14] MEDS ORDERED: PROM118S5 PO (21:41)
[2023-02-14 21:51] VITALS: BP 152/92
--- NOTE | 2023-02-14 21:51 | NUR ---
Patient discharged with v/s stable. Written and verbal after care instructions given and explained. Patient alert, oriented and verbalized understanding of instructions. Ambulatory with steady gait. All questions addressed prior to discharge. ID band removed. Patient advised to follow up with PMD. Rx of Albuterol, Azithromycin and Promethazine given. Patient educated on indication of medication including possible reaction and side effects. Opportunity to ask questions provided and answered.
== END 2023-02-14 21:51 | disposition home or self-care (01) ==
LOC: MED 19:38
DX: J18.1 Lobar pneumonia, unspecified organism (principal); Z20.822 Contact with and (suspected) exposure to COVID-19; E11.9 Type 2 diabetes mellitus without complications; Z79.4 Long term (current) use of insulin; Z79.899 Other long term (current) drug therapy
CPT/HCPCS: 71045; 99284

== ENCOUNTER 2023-02-17 21:18 | Emergency (ER) | payer OTHER ==
[~2023-02-17] VITALS: Ht 160 cm; Wt 72.6 kg
[~2023-02-17 21:18] MED LIST changes: +ALBU0.0912 INH; +AZIT250T4 PO; +PROM118S5 PO
[2023-02-17 21:25] VITALS: BP 140/79
--- NOTE | 2023-02-17 21:28 | NUR ---
TO LOBBY A/W BED AMBULATORY
[2023-02-17 21:35] VITALS: BP 140/79
--- NOTE | 2023-02-17 22:10 | NUR ---
Urine collected and sent to lab
--- NOTE | 2023-02-17 22:16 | NUR ---
DR KAPADIA AT BEDSIDE
[2023-02-17] MEDS ORDERED: KETOROLAC 60 MG/2 ML VIAL IM ONE (22:20)
--- NOTE | 2023-02-17 22:30 | NUR ---
62YR OLD FEMALE BIB SELF C/O RLQ ABD PAIN. PT STATES PAIN STARTED X2DAYS AGO. 05/10 SHARP RLQ ABD PAIN DENIES N/V/D. PT DENIES CP SOB OR FEVER. PT IS A&OX4. DENIES URINARY PAIN. NKDA DM
[2023-02-17 22:33] LABS: APPEARANCE,URINE CLOUDY (CLEAR); BILIRUBIN,URINE NEGATIVE (NEGATIVE); BLOOD, URINE NEGATIVE (NEGATIVE); COLOR,URINE RED (YELLOW); LEUKOCYTE ESTERASE ,URINE NEGATIVE (NEGATIVE); NITRITE, URINE NEGATIVE (NEGATIVE); PH,URINE 5.5 (5.0-9.0); UGLUCOSE 3+ (NEGATIVE)
[2023-02-17] MEDS ORDERED: IBUP-2213 PO (22:55)
[2023-02-17] MEDS ORDERED: ONDA8TAB87 PO (22:55)
--- NOTE | 2023-02-17 23:04 | NUR ---
Patient discharged with v/s stable. Written and verbal after care instructions given and explained. Patient verbalized understanding. Ambulatory with to car. All questions addressed prior to discharge. Advised to follow up with PMD.
== END 2023-02-17 23:04 | disposition home or self-care (01) ==
LOC: MED 21:18
DX: R10.9 Unspecified abdominal pain (principal); R11.2 Nausea with vomiting, unspecified; E11.9 Type 2 diabetes mellitus without complications; F17.200 Nicotine dependence, unspecified, uncomplicated; Z79.4 Long term (current) use of insulin; Z79.899 Other long term (current) drug therapy; Z90.49 Acquired absence of other specified parts of digestive tract
CPT/HCPCS: 81003; 96372; 99283; J1885

== ENCOUNTER 2023-05-01 10:05 | Inpatient (IN) | payer OTHER ==
[~2023-05-01] VITALS: Ht 162.6 cm; Wt 73.0 kg
[~2023-05-01 10:05] MED LIST changes: -BACI-416 TP; +BACI-418 TP; +ONDA8TAB87 PO
[2023-05-01 10:15] VITALS: BP 127/61; PULSE 85; RESP 17; TEMP 97.4; O2SAT 97
[2023-05-01] MEDS ORDERED: MORPHINE SULFATE 4 MG/ML SYR IM ONE (10:40)
[2023-05-01] MEDS ORDERED: ONDANSETRON 4 MG ODT PO ONE (10:40)
[2023-05-01 10:50] VITALS: O2SAT 97
[2023-05-01] MEDS ORDERED: LIDOCAINE MPF 1% 5 ML ONE (12:03)
[2023-05-01] MEDS ORDERED: LIDOCAINE 1% 500 MG/ 50 ML VIAL INJ ONE (12:05)
[2023-05-01] MEDS ORDERED: LIDOCAINE MPF 1% 10 MG/ML VIAL INJ ONE (12:20)
[2023-05-01 12:58] VITALS: O2SAT 97
[2023-05-01 13:59] LABS: BLOOD GAS PCO2 35.3 mmHg (35-45); BLOOD GAS PH 7.471 (7.35-7.45)
[2023-05-01 14:00] LABS: BLOOD GAS HCO3 25.2 mmol/L (22-26); BLOOD GAS PO2 51.5 mmHg (75-100)
[2023-05-01 14:01] LABS: BLOOD GAS BASE EXCESS 1.9 mmol/L (-2.0-2.0)
[2023-05-01 14:02] LABS: BLOOD GAS O2 SAT% 88.7 % (92.0-98.5)
[2023-05-01 14:30] LABS: HEMATOCRIT 41.2 % (36-48); HEMOGLOBIN 13.9 g/dL (12.0-16.0); MEAN CORPUSCULAR HEMOGLOBIN 29 pg (27-31); MEAN CORPUSCULAR HGB CONC 34 g/dL (33-37); MEAN CORPUSCULAR VOLUME 85.5 fL (80-94); PLATELET COUNT (AUTO) 206 K/uL (140-450); RED BLOOD CELL COUNT(AUTO) 4.82 MIL/uL (4.20-5.40); RED CELL DISTRIBUTION WIDTH 13.6 % (11.6-13.7); WHITE BLOOD COUNT (AUTO) 16.4 K/uL (4.8-10.8)
[2023-05-01] MEDS ORDERED: ALBUTEROL 0.083% 2.5 MG/3 ML NEBU INH ONE (14:35)
[2023-05-01] MEDS ORDERED: IPRATROPIUM 0.02% 0.5 MG/2.5 ML NEBU INH ONE (14:35)
[2023-05-01 14:43] LABS: ALBUMIN 3.4 g/dL (3.4-5.0); ANION GAP 12.1 (8-16); CALCIUM 8.9 mg/dL (8.5-10.1); CARBON DIOXIDE 27.7 mmol/L (21-32); CREATININE 0.7 mg/dL (0.6-1.3); POTASSIUM 3.8 mmol/L (3.5-5.1); TOTAL BILIRUBIN 1.1 mg/dL (0.0-1.0); TOTAL PROTEIN, SERUM 7.2 g/dL (6.4-8.2)
[2023-05-01 14:45] LABS: INR 1.02 (0.8-1.2); PARTIAL THROMBOPLASTIN TIME 28.7 secs (22-35.6); PROTHROMBIN TIME 10.7 secs (10.8-13.4)
[2023-05-01 14:48] LABS: LYMPHOCYTES % (MANUAL) 7 % (20-46); MONOCYTES % (MANUAL) 2 % (5-12); PLATELET ESTIMATE ADEQUATE; PROMYELOCYTES % 1 % (0-0)
[2023-05-01 15:20] VITALS: PULSE 81; RESP 18; O2SAT 95
[2023-05-01] MEDS ORDERED: HYDROcodone/APAP 5/325 MG 1 TAB TAB PO ONE (16:35)
[2023-05-01] MEDS ORDERED: ALBUTEROL SULFATE/IPRATROPIU 3 ML SOL IH PRN (16:55)
[2023-05-01] MEDS ORDERED: POTASSIUM CHLORIDE 10 MEQ TABER PO PRN (16:55)
[2023-05-01] MEDS ORDERED: ACETAMINOPHEN 325 MG TAB PO PRN (16:55)
[2023-05-01] MEDS ORDERED: MAGNESIUM OXIDE 400 MG TAB PO PRN (16:55)
[2023-05-01] MEDS ORDERED: ONDANSETRON 4 MG/2 ML VIAL IVP PRN (16:55)
[2023-05-01] MEDS ORDERED: MAG SULF 2000 MG/WATER PREMIX 50 ML IV PRN (16:55)
[2023-05-01] MEDS ORDERED: KCL 20 MEQ IN 100 mL PREMIX 200 ML IV PRN (16:55)
[2023-05-01] MEDS ORDERED: DEXTROSE 50% 50 ML SYR IVP PRN (17:00)
[2023-05-01 18:25] VITALS: RESP 20; O2SAT 93
[2023-05-01 20:00] VITALS: PULSE 87; RESP 20; O2SAT 93
[2023-05-01] MEDS: BLOOD GLUCOSE MONITORING 1 DEV DEV FS SCH (20:38)
[2023-05-01] MEDS: MORPHINE SULFATE 2 MG/ML SYR IVP PRN (20:45)
[2023-05-01] MEDS: FUROSEMIDE 40 MG/4 ML VIAL IVP SCH (20:45)
[2023-05-01] MEDS: INSULIN LISPRO SLIDING SCALE 100 UNITS/ML VIAL SUBQ PRN (20:47)
[2023-05-02] VITALS (12 sets, daily range): BP systolic 107–154; BP diastolic 53–72; PULSE 92–106; RESP 17–24; TEMP 98–98.5; O2SAT 90–100
[2023-05-02] MEDS: BLOOD GLUCOSE MONITORING 1 DEV DEV FS SCH ×4 (06:45→20:29)
[2023-05-02] MEDS: MORPHINE SULFATE 2 MG/ML SYR IVP PRN ×2 (06:48→11:54)
[2023-05-02] MEDS: INSULIN LISPRO SLIDING SCALE 100 UNITS/ML VIAL SUBQ PRN ×4 (06:49→20:37)
[2023-05-02 06:59] LABS: BASOPHILS % (AUTO) 0.3 % (0.0-2.0); HEMATOCRIT 40.4 % (36-48); LYMPHOCYTES % (AUTO) 8.6 % (20.5-51.1); MEAN CORPUSCULAR HEMOGLOBIN 30 pg (27-31); MEAN CORPUSCULAR HGB CONC 35 g/dL (33-37); MONOCYTES # (AUTO) 0.8 K/uL (0.8-1.0); MONOCYTES % (AUTO) 6.6 % (1.7-9.3); NEUTROPHILS # (AUTO) 9.8 K/uL (1.8-7.7); NEUTROPHILS % (AUTO) 84.5 % (42.2-75.2); PLATELET COUNT (AUTO) 195 K/uL (140-450); RED BLOOD CELL COUNT(AUTO) 4.75 MIL/uL (4.20-5.40); RED CELL DISTRIBUTION WIDTH 13.6 % (11.6-13.7); WHITE BLOOD COUNT (AUTO) 11.5 K/uL (4.8-10.8)
[2023-05-02 07:02] LABS: ALBUMIN 3.2 g/dL (3.4-5.0); ANION GAP 14.4 (8-16); CARBON DIOXIDE 25.9 mmol/L (21-32); CREATININE 0.7 mg/dL (0.6-1.3); MAGNESIUM 1.7 mg/dL (1.8-2.4); POTASSIUM 3.3 mmol/L (3.5-5.1); TOTAL PROTEIN, SERUM 7.4 g/dL (6.4-8.2)
[2023-05-02] MEDS: INSULIN LANTUS 100 UNITS/ML 10 ML VIAL SUBQ SCH (09:56)
[2023-05-02] MEDS: FUROSEMIDE 40 MG/4 ML VIAL IVP SCH ×2 (10:14→20:29)
[2023-05-02] MEDS ORDERED: INSULIN LISPRO 100 UNITS/ML VIAL SUBQ SCH (18:00)
[2023-05-02] MEDS: HYDROcodone/APAP 5/325 MG 1 TAB TAB PO PRN (20:30)
[2023-05-03] VITALS (10 sets, daily range): BP systolic 102–122; BP diastolic 45–73; PULSE 80–93; RESP 16–20; TEMP 96.6–98.5; O2SAT 88–99
[2023-05-03] MEDS: HYDROcodone/APAP 5/325 MG 1 TAB TAB PO PRN (04:16)
[2023-05-03 05:11] LABS: BASOPHILS % (AUTO) 0.3 % (0.0-2.0); EOSINOPHILS % (AUTO) 0.3 % (0.0-4.0); HEMATOCRIT 39.7 % (36-48); HEMOGLOBIN 13.7 g/dL (12.0-16.0); LYMPHOCYTES # (AUTO) 1.9 K/uL (2.5-16.5); LYMPHOCYTES % (AUTO) 14.4 % (20.5-51.1); MEAN CORPUSCULAR HEMOGLOBIN 29 pg (27-31); MEAN CORPUSCULAR HGB CONC 35 g/dL (33-37); MONOCYTES # (AUTO) 1.4 K/uL (0.8-1.0); MONOCYTES % (AUTO) 10.8 % (1.7-9.3); NEUTROPHILS # (AUTO) 9.5 K/uL (1.8-7.7); NEUTROPHILS % (AUTO) 74.2 % (42.2-75.2); PLATELET COUNT (AUTO) 208 K/uL (140-450); RED BLOOD CELL COUNT(AUTO) 4.73 MIL/uL (4.20-5.40); RED CELL DISTRIBUTION WIDTH 13.4 % (11.6-13.7); WHITE BLOOD COUNT (AUTO) 12.9 K/uL (4.8-10.8)
[2023-05-03 05:36] LABS: ALBUMIN 2.9 g/dL (3.4-5.0); ANION GAP 13.1 (8-16); CARBON DIOXIDE 27.7 mmol/L (21-32); CREATININE 0.6 mg/dL (0.6-1.3); MAGNESIUM 1.8 mg/dL (1.8-2.4); POTASSIUM 3.8 mmol/L (3.5-5.1); TOTAL BILIRUBIN 1.5 mg/dL (0.0-1.0); TOTAL PROTEIN, SERUM 7.1 g/dL (6.4-8.2)
[2023-05-03] MEDS: BLOOD GLUCOSE MONITORING 1 DEV DEV FS SCH ×3 (06:47→16:41)
[2023-05-03] MEDS: INSULIN LISPRO SLIDING SCALE 100 UNITS/ML VIAL SUBQ PRN ×3 (06:51→16:45)
[2023-05-03] MEDS: INSULIN LANTUS 100 UNITS/ML 10 ML VIAL SUBQ SCH (08:33)
[2023-05-03] MEDS: FUROSEMIDE 40 MG/4 ML VIAL IVP SCH (10:44)
[2023-05-03 12:59] LABS: APPEARANCE,URINE CLEAR (CLEAR); BILIRUBIN,URINE NEGATIVE (NEGATIVE); BLOOD, URINE TRACE-I (NEGATIVE); COLOR,URINE YELLOW (YELLOW); LEUKOCYTE ESTERASE ,URINE 2+ (NEGATIVE); NITRITE, URINE POSITIVE (NEGATIVE); PH,URINE 5.5 (5.0-9.0); PROTEIN,URINE NEGATIVE (NEGATIVE); UGLUCOSE 1+ (NEGATIVE)
[2023-05-03 13:10] LABS: BACTERIA,URINE 3+ /HPF (None Seen); RBC,URINE 0-5 /HPF (0-5); WBC,URINE 80-100 /HPF (0-5)
[2023-05-03] MEDS: MORPHINE SULFATE 2 MG/ML SYR IVP PRN ×2 (13:51→18:37)
[2023-05-03] MEDS ORDERED: FURO-570 PO (16:03)
[2023-05-03] MEDS ORDERED: ACET-9525 PO (16:03)
== END 2023-05-03 20:40 | DRG 347 ==
LOC: MED 10:05 → MTU 16:56
PROVIDERS: ADMIT Internal Medicine; ATTEND Internal Medicine
DX: S32.10XA Unspecified fracture of sacrum, initial encounter for closed fracture (principal); J96.01 Acute respiratory failure with hypoxia; I50.31 Acute diastolic (congestive) heart failure; S32.512A Fracture of superior rim of left pubis, initial encounter for closed fracture; R65.10 Systemic inflammatory response syndrome (SIRS) of non-infectious origin without acute organ dysfunction; D72.829 Elevated white blood cell count, unspecified; E11.9 Type 2 diabetes mellitus without complications; E66.9 Obesity, unspecified; S01.01XA Laceration without foreign body of scalp, initial encounter; Z68.27 Body mass index [BMI] 27.0-27.9, adult; Z90.49 Acquired absence of other specified parts of digestive tract
CPT/HCPCS: 12001; 36415; 36600; 70450; 71045; 72100; 72131; 72170; 72192; 80053; 81001; 82803; 82948; 83735; 83880; 83930; 83935; 84300; 84484; 85025; 85610; 85730; 87081; 87086; 93005; 94640; 96372; 97112; 97116; 97163-GP; 97530; 99285; J1644; J1815; J1940; J2001; J2270; J7613; J7644; Q0162

== ENCOUNTER 2023-05-06 14:41 | Inpatient (IN) | payer OTHER ==
[~2023-05-06] VITALS: Ht 154.9 cm; Wt 73.0 kg
[2023-05-06] VITALS (8 sets, daily range): BP systolic 108–155; BP diastolic 61–98; PULSE 101–120; RESP 22–29; TEMP 98–101.1; O2SAT 92–96
[~2023-05-06 14:41] MED LIST changes: -ACET-10509 PO; -ACET-8905 PO; +ACET-9525 PO; -ALBU0.0912 IH; -ALBU0.0912 INH; -AMOX-1000 PO; -AZIT250T4 PO; -BACI-418 TP; -BACTO TP; -BEN10 PO; -BENZ200C4 PO; -BROM118S65 PO; -CEPH-588 PO; -CIPR500T4 PO; -FLUC200T PO; +FURO-570 PO; -GABA100C PO; -IBUP-1842 PO; -IBUP-2213 PO; -KETO2CRE3 TP; -METH4TAB1 PO; -MICO2POW TP; -NAPR-54 PO; -ONDA8TAB87 PO; -PENI500T20 PO; -PROM118S5 PO
[2023-05-06 15:32] LABS: HEMATOCRIT 37.6 % (36-48); HEMOGLOBIN 12.7 g/dL (12.0-16.0); MEAN CORPUSCULAR HEMOGLOBIN 29 pg (27-31); MEAN CORPUSCULAR HGB CONC 34 g/dL (33-37); MEAN CORPUSCULAR VOLUME 84.2 fL (80-94); PLATELET COUNT (AUTO) 302 K/uL (140-450); RED BLOOD CELL COUNT(AUTO) 4.46 MIL/uL (4.20-5.40); RED CELL DISTRIBUTION WIDTH 13.6 % (11.6-13.7)
[2023-05-06] MEDS ORDERED: ACETAMINOPHEN EXTRA STRENGTH 500 MG TAB PO ONE (15:35)
[2023-05-06] MEDS ORDERED: IBUPROFEN 600 MG TAB PO ONE (15:35)
[2023-05-06 15:47] LABS: INR 1.01 (0.8-1.2); PARTIAL THROMBOPLASTIN TIME 31.3 secs (22-35.6); PROTHROMBIN TIME 10.6 secs (10.8-13.4)
[2023-05-06 15:49] LABS: ALBUMIN 2.7 g/dL (3.4-5.0); ANION GAP 22.4 (8-16); CALCIUM 8.8 mg/dL (8.5-10.1); CARBON DIOXIDE 18.4 mmol/L (21-32); POTASSIUM 3.8 mmol/L (3.5-5.1); TOTAL BILIRUBIN 1.8 mg/dL (0.0-1.0); TOTAL PROTEIN, SERUM 7.3 g/dL (6.4-8.2)
[2023-05-06 15:52] LABS: LACTIC ACID 1.3 mmol/L (0.4-2.0)
[2023-05-06 15:53] LABS: CREATINE KINASE, TOTAL 106 U/L (26-192)
[2023-05-06 15:54] LABS: WHITE BLOOD COUNT (AUTO) 28.2 K/uL (4.8-10.8)
[2023-05-06] MEDS ORDERED: VANCOMYCIN 1,000 MG in DEXTROSE 5% 250 ML IV ONE (16:00)
[2023-05-06] MEDS ORDERED: PIPERACILLIN/TAZOBACTAM 3.375 GM in DEXTROSE 5% 50 ML IV ONE (16:00)
[2023-05-06 16:09] LABS: BASOPHILS % (MANUAL) 0 % (0-2); EOSINOPHILS % (MANUAL) 0 % (0-4); LYMPHOCYTES % (MANUAL) 13 % (20-46); MONOCYTES % (MANUAL) 9 % (5-12)
[2023-05-06 16:17] LABS: ACETONE, SERUM LARGE (NEGATIVE)
[2023-05-06 16:20] LABS: FLU A ANTIGEN negative (NEGATIVE); FLU B ANTIGEN NEGATIVE (NEGATIVE)
[2023-05-06] MEDS ORDERED: ACETAMINOPHEN 120 MG SUPP RC ONE (16:40)
[2023-05-06] MEDS ORDERED: INSULIN REGULAR, HUMAN 100 UNIT/ML VIAL SUBQ ONE (16:40)
[2023-05-06] MEDS ORDERED: PIPERACILLIN/TAZOBACTAM 3.375 GM VIAL IV ONE (16:51)
[2023-05-06] MEDS ORDERED: VANCOMYCIN 1,000 MG VIAL ONE ×2 (16:51→17:04)
[2023-05-06 16:54] LABS: BLOOD GAS PH 7.487 (7.35-7.45)
[2023-05-06 16:55] LABS: BLOOD GAS PCO2 23.9 mmHg (35-45); BLOOD GAS PO2 63.7 mmHg (75-100)
[2023-05-06 16:56] LABS: BLOOD GAS BASE EXCESS -3.7 mmol/L (-2.0-2.0); BLOOD GAS HCO3 17.7 mmol/L (22-26); BLOOD GAS O2 SAT% 94.3 % (92.0-98.5)
[2023-05-06] MEDS ORDERED: INSULIN REGULAR, HUMAN 100 UNIT in NACL 0.9% 100 ML IV ONE ×2 (17:40)
[2023-05-06 17:57] LABS: APPEARANCE,URINE CLOUDY (CLEAR); BILIRUBIN,URINE NEGATIVE (NEGATIVE); BLOOD, URINE 1+ (NEGATIVE); COLOR,URINE YELLOW (YELLOW); LEUKOCYTE ESTERASE ,URINE 1+ (NEGATIVE); NITRITE, URINE NEGATIVE (NEGATIVE); PH,URINE 5.5 (5.0-9.0); PROTEIN,URINE NEGATIVE (NEGATIVE); UGLUCOSE 3+ (NEGATIVE); UROBILINOGEN,URINE 0.2 EU/dL (0.2 - 1)
[2023-05-06 18:02] LABS: BACTERIA,URINE FEW /HPF (None Seen); MUCUS,URINE 2+ /LPF (None Seen); RBC,URINE 20-50 /HPF (0-5); TRICHOMONAS,URINE None Seen /HPF (None Seen); WHITE BLOOD CELL CASTS,URINE 0-3 /LPF (None Seen); YEAST,URINE Many /HPF (None Seen)
[2023-05-06] MEDS ORDERED: LORazepam 2 MG/ML VIAL IVP PRN (18:25)
[2023-05-06] MEDS ORDERED: ACETAMINOPHEN 325 MG TAB PO PRN (18:25)
[2023-05-06] MEDS ORDERED: ONDANSETRON 4 MG/2 ML VIAL IVP PRN (18:25)
[2023-05-06] MEDS ORDERED: cefTRIAXone 1,000 MG VIAL ONE (19:25)
[2023-05-06] MEDS ORDERED: KCL 20 MEQ IN 100 mL PREMIX 200 ML IV PRN (19:30)
[2023-05-06] MEDS ORDERED: MAG SULF 2000 MG/WATER PREMIX 50 ML IV PRN (19:30)
[2023-05-06] MEDS: NACL 0.9% 1,000 ML IV SCH ×2 (20:11→23:36)
[2023-05-06] MEDS: BLOOD GLUCOSE MONITORING 1 DEV DEV FS SCH ×5 (20:11→23:30)
[2023-05-06] MEDS: INSULIN REGULAR, HUMAN 100 UNIT in NACL 0.9% 100 ML IV SCH ×4 (20:14→23:31)
[2023-05-06 20:20] LABS: ANION GAP 15.7 (8-16); CALCIUM 8.8 mg/dL (8.5-10.1); CARBON DIOXIDE 25.5 mmol/L (21-32); CREATININE 1.1 mg/dL (0.6-1.3); POTASSIUM 3.2 mmol/L (3.5-5.1)
[2023-05-06 20:23] LABS: MAGNESIUM 1.9 mg/dL (1.8-2.4); PHOSPHORUS 1.8 mg/dL (2.5-4.9)
[2023-05-06] MEDS: MORPHINE SULFATE 2 MG/ML SYR IVP PRN (23:21)
[2023-05-06] MEDS: DEXT 5% / NACL 0.45% 1,000 ML IV SCH (23:36)
[2023-05-07] VITALS (23 sets, daily range): BP systolic 95–157; BP diastolic 30–79; PULSE 84–119; RESP 17–26; TEMP 97.8–100.8; O2SAT 90–98
[2023-05-07] MEDS: NACL 0.9% 1,000 ML IV SCH ×6 (00:30→18:59)
[2023-05-07] MEDS: BLOOD GLUCOSE MONITORING 1 DEV DEV FS SCH ×10 (00:32→21:44)
[2023-05-07] MEDS: DEXT 5% / NACL 0.45% 1,000 ML IV SCH ×3 (00:33→05:35)
[2023-05-07] MEDS: INSULIN REGULAR, HUMAN 100 UNIT in NACL 0.9% 100 ML IV SCH ×2 (00:33)
[2023-05-07 00:38] LABS: ANION GAP 14.2 (8-16); CALCIUM 8.8 mg/dL (8.5-10.1); CARBON DIOXIDE 25.9 mmol/L (21-32); POTASSIUM 4.1 mmol/L (3.5-5.1)
[2023-05-07 00:42] LABS: MAGNESIUM 1.8 mg/dL (1.8-2.4); PHOSPHORUS 1.7 mg/dL (2.5-4.9)
[2023-05-07 04:32] LABS: ANION GAP 10.4 (8-16); CALCIUM 8.4 mg/dL (8.5-10.1); CARBON DIOXIDE 26.3 mmol/L (21-32); CREATININE 0.9 mg/dL (0.6-1.3); MAGNESIUM 2.6 mg/dL (1.8-2.4); PHOSPHORUS 1.5 mg/dL (2.5-4.9); POTASSIUM 3.7 mmol/L (3.5-5.1)
[2023-05-07 05:15] LABS: BASOPHILS # (AUTO) 0.2 K/uL (0.00-0.22); BASOPHILS % (AUTO) 0.7 % (0.0-2.0); EOSINOPHILS # (AUTO) 0.8 K/uL (0-0.4); EOSINOPHILS % (AUTO) 3.4 % (0.0-4.0); HEMATOCRIT 34.5 % (36-48); HEMOGLOBIN 12.1 g/dL (12.0-16.0); LYMPHOCYTES # (AUTO) 0.8 K/uL (2.5-16.5); LYMPHOCYTES % (AUTO) 3.5 % (20.5-51.1); MEAN CORPUSCULAR HEMOGLOBIN 29 pg (27-31); MEAN CORPUSCULAR HGB CONC 35 g/dL (33-37); MEAN CORPUSCULAR VOLUME 83.7 fL (80-94); MONOCYTES # (AUTO) 2.1 K/uL (0.8-1.0); MONOCYTES % (AUTO) 8.5 % (1.7-9.3); NEUTROPHILS # (AUTO) 20.3 K/uL (1.8-7.7); NEUTROPHILS % (AUTO) 83.9 % (42.2-75.2); PLATELET COUNT (AUTO) 275 K/uL (140-450); RED BLOOD CELL COUNT(AUTO) 4.13 MIL/uL (4.20-5.40); RED CELL DISTRIBUTION WIDTH 13.8 % (11.6-13.7); WHITE BLOOD COUNT (AUTO) 24.2 K/uL (4.8-10.8)
[2023-05-07] MEDS: INSULIN LANTUS 100 UNITS/ML 10 ML VIAL SUBQ SCH ×2 (06:49→06:54)
[2023-05-07 08:32] LABS: ANION GAP 11.6 (8-16); CALCIUM 8.4 mg/dL (8.5-10.1); CARBON DIOXIDE 26.3 mmol/L (21-32); CREATININE 0.9 mg/dL (0.6-1.3); POTASSIUM 3.9 mmol/L (3.5-5.1)
[2023-05-07 08:36] LABS: MAGNESIUM 2.8 mg/dL (1.8-2.4)
[2023-05-07] MEDS: INSULIN LISPRO SLIDING SCALE 100 UNITS/ML VIAL SUBQ PRN ×3 (12:52→21:45)
[2023-05-08] VITALS (10 sets, daily range): BP systolic 113–139; BP diastolic 57–67; PULSE 84–100; RESP 18–20; TEMP 96.7–99.2; O2SAT 91–97
[2023-05-08] MEDS: MORPHINE SULFATE 2 MG/ML SYR IVP PRN (04:39)
[2023-05-08] MEDS: INSULIN LISPRO SLIDING SCALE 100 UNITS/ML VIAL SUBQ PRN ×4 (06:53→20:28)
[2023-05-08] MEDS: BLOOD GLUCOSE MONITORING 1 DEV DEV FS SCH ×4 (06:54→20:27)
[2023-05-08] MEDS: INSULIN LANTUS 100 UNITS/ML 10 ML VIAL SUBQ SCH (08:44)
[2023-05-08] MEDS: NACL 0.9% 1,000 ML IV SCH ×3 (10:01→21:30)
[2023-05-08 16:52] LABS: ALBUMIN 1.7 g/dL (3.4-5.0); ANION GAP 14.1 (8-16); CALCIUM 7.9 mg/dL (8.5-10.1); CARBON DIOXIDE 21.9 mmol/L (21-32); CREATININE 0.6 mg/dL (0.6-1.3); TOTAL PROTEIN, SERUM 6.1 g/dL (6.4-8.2)
[2023-05-09] VITALS (7 sets, daily range): BP systolic 115–134; BP diastolic 53–63; PULSE 79–89; RESP 15–20; TEMP 96.9–98.5; O2SAT 95–98
[2023-05-09] MEDS: NACL 0.9% 1,000 ML IV SCH ×3 (02:30→13:10)
[2023-05-09] MEDS: BLOOD GLUCOSE MONITORING 1 DEV DEV FS SCH ×2 (06:42→11:18)
[2023-05-09] MEDS: INSULIN LISPRO SLIDING SCALE 100 UNITS/ML VIAL SUBQ PRN ×2 (06:43→11:22)
[2023-05-09 09:26] LABS: ANION GAP 11.5 (8-16); CARBON DIOXIDE 23.3 mmol/L (21-32); CREATININE 0.6 mg/dL (0.6-1.3); POTASSIUM 3.8 mmol/L (3.5-5.1)
[2023-05-09] MEDS: INSULIN LANTUS 100 UNITS/ML 10 ML VIAL SUBQ SCH (09:33)
[2023-05-09 09:41] LABS: BASOPHILS % (AUTO) 0.2 % (0.0-2.0); EOSINOPHILS # (AUTO) 0.1 K/uL (0-0.4); EOSINOPHILS % (AUTO) 0.3 % (0.0-4.0); HEMATOCRIT 31.8 % (36-48); HEMOGLOBIN 10.8 g/dL (12.0-16.0); LYMPHOCYTES # (AUTO) 0.9 K/uL (2.5-16.5); LYMPHOCYTES % (AUTO) 5.1 % (20.5-51.1); MEAN CORPUSCULAR HEMOGLOBIN 29 pg (27-31); MEAN CORPUSCULAR HGB CONC 34 g/dL (33-37); MEAN CORPUSCULAR VOLUME 86.5 fL (80-94); MONOCYTES # (AUTO) 1.8 K/uL (0.8-1.0); NEUTROPHILS # (AUTO) 15.2 K/uL (1.8-7.7); NEUTROPHILS % (AUTO) 84.4 % (42.2-75.2); PLATELET COUNT (AUTO) 179 K/uL (140-450); RED BLOOD CELL COUNT(AUTO) 3.67 MIL/uL (4.20-5.40); RED CELL DISTRIBUTION WIDTH 13.9 % (11.6-13.7); WHITE BLOOD COUNT (AUTO) 18.1 K/uL (4.8-10.8)
[2023-05-09] MEDS: MORPHINE SULFATE 2 MG/ML SYR IVP PRN (13:15)
[2023-05-09] MEDS ORDERED: CEPH500T PO (13:48)
== END 2023-05-09 17:30 | disposition home health service (06) | DRG 720 ==
LOC: MED 14:41 → MLD 18:26 → MIC 19:18 → MTU 05-07 18:52
PROVIDERS: ADMIT Hospitalist; ATTEND Hospitalist
DX: A41.9 Sepsis, unspecified organism (principal); J96.00 Acute respiratory failure, unspecified whether with hypoxia or hypercapnia; G93.41 Metabolic encephalopathy; E11.10 Type 2 diabetes mellitus with ketoacidosis without coma; I50.9 Heart failure, unspecified; I11.0 Hypertensive heart disease with heart failure; N39.0 Urinary tract infection, site not specified; Z20.822 Contact with and (suspected) exposure to COVID-19; J44.9 Chronic obstructive pulmonary disease, unspecified; Z79.84 Long term (current) use of oral hypoglycemic drugs; Z79.899 Other long term (current) drug therapy
CPT/HCPCS: 36415; 36600; 70450; 71045; 80048; 80053; 81001; 82009; 82550; 82553; 82803; 82948; 83605; 83735; 83880; 84100; 84484; 85025; 85610; 85730; 87040; 87081; 87086; 93005; 96372; 96374; 96375; 97110; 97116; 97163-GP; 97530; 99285; J0696; J1815; J2270; J2543; J3370; J3475; J3480; J7060

== ENCOUNTER 2023-05-17 20:09 | Emergency (ER) | payer OTHER ==
[~2023-05-17] VITALS: Ht 160 cm; Wt 71.7 kg
[~2023-05-17 20:09] MED LIST changes: +CEPH500T PO
[2023-05-17 20:49] VITALS: BP 118/53; PULSE 86; RESP 18; TEMP 97; O2SAT 97
[2023-05-17 22:00] VITALS: BP 118/53; PULSE 86; RESP 18; TEMP 97; O2SAT 97
== END 2023-05-17 22:00 | disposition home or self-care (01) ==
LOC: MED 20:09
DX: S01.01XD Laceration without foreign body of scalp, subsequent encounter (principal); J44.9 Chronic obstructive pulmonary disease, unspecified; E11.9 Type 2 diabetes mellitus without complications; I10 Essential (primary) hypertension; Z79.84 Long term (current) use of oral hypoglycemic drugs; Z79.899 Other long term (current) drug therapy; X58.XXXD Exposure to other specified factors, subsequent encounter
CPT/HCPCS: 99281

== ENCOUNTER 2023-06-07 19:39 | Emergency (ER) | payer OTHER ==
[~2023-06-07] VITALS: Ht 160 cm; Wt 72.1 kg
[2023-06-07 20:05] VITALS: BP 141/68; PULSE 72; RESP 17; TEMP 98.1; O2SAT 98
[2023-06-07 21:51] VITALS: BP 133/53; PULSE 83; RESP 19; O2SAT 98
== END 2023-06-07 22:26 | disposition left against medical advice (07) ==
LOC: MED 19:39
DX: R10.9 Unspecified abdominal pain (principal); Z53.21 Procedure and treatment not carried out due to patient leaving prior to being seen by health care provider
CPT/HCPCS: 99281

== ENCOUNTER 2023-06-23 21:57 | Emergency (ER) | payer OTHER ==
[~2023-06-23] VITALS: Ht 160 cm; Wt 72.6 kg
[2023-06-23 22:00] VITALS: BP 135/64; PULSE 90; RESP 17; TEMP 98; O2SAT 98
[2023-06-24] MEDS ORDERED: KETOROLAC 60 MG/2 ML VIAL IM ONE (00:05)
[2023-06-24] MEDS ORDERED: PHEN-1877 PO (00:13)
[2023-06-24] MEDS ORDERED: IBUP-2213 PO (00:13)
[2023-06-24] MEDS ORDERED: CIPR500T4 PO (00:13)
[2023-06-24 00:38] VITALS: BP 146/81; PULSE 84; RESP 17; TEMP 98; O2SAT 98
== END 2023-06-24 00:38 | disposition home or self-care (01) ==
LOC: MED 21:57
DX: N39.0 Urinary tract infection, site not specified (principal); R30.0 Dysuria; J44.9 Chronic obstructive pulmonary disease, unspecified; E11.9 Type 2 diabetes mellitus without complications; I10 Essential (primary) hypertension; F17.200 Nicotine dependence, unspecified, uncomplicated; Z79.84 Long term (current) use of oral hypoglycemic drugs; Z79.899 Other long term (current) drug therapy; Z98.890 Other specified postprocedural states
CPT/HCPCS: 81002; 87086; 96372; 99283; J1885

== ENCOUNTER 2023-08-13 19:16 | Inpatient (IN) | payer OTHER ==
[~2023-08-13] VITALS: Ht 162.6 cm; Wt 75.7 kg
[~2023-08-13 19:16] MED LIST changes: +CIPR500T4 PO; +IBUP-2213 PO; +PHEN-1877 PO
[2023-08-13 19:41] VITALS: BP 117/71; PULSE 124; RESP 20; TEMP 98.3; O2SAT 94
[2023-08-13 19:59] VITALS: O2SAT 97
[2023-08-13] MEDS ORDERED: NACL 0.9% 1,000 ML IV ONE (20:05)
[2023-08-13 21:12] LABS: BILIRUBIN,URINE NEGATIVE (NEGATIVE); BLOOD, URINE 1+ (NEGATIVE); COLOR,URINE YELLOW (YELLOW); LEUKOCYTE ESTERASE ,URINE 1+ (NEGATIVE); NITRITE, URINE NEGATIVE (NEGATIVE); PH,URINE 5.5 (5.0-9.0); PROTEIN,URINE 3+ (NEGATIVE); UGLUCOSE 2+ (NEGATIVE)
[2023-08-13 21:14] LABS: APPEARANCE,URINE HAZY (CLEAR)
[2023-08-13 21:17] LABS: BACTERIA,URINE 3+ /HPF (None Seen); RBC,URINE 0-5 /HPF (0-5); SQUAMOUS EPITHELIAL CELL,UR 0-3 (FEW) /LPF (0-3 (FEW)); WBC,URINE 20-60 /HPF (0-5)
[2023-08-13 22:00] VITALS: O2SAT 97
[2023-08-13] MEDS ORDERED: NACL 0.9% 1,000 ML IV SCH (22:10)
[2023-08-13] MEDS ORDERED: cefTRIAXone 1,000 MG VIAL ONE (22:21)
[2023-08-13 22:27] LABS: BASOPHILS # (AUTO) 0.3 K/uL (0.00-0.22); BASOPHILS % (AUTO) 1.2 % (0.0-2.0); EOSINOPHILS % (AUTO) 0.1 % (0.0-4.0); HEMATOCRIT 35.7 % (36-48); HEMOGLOBIN 11.9 g/dL (12.0-16.0); LYMPHOCYTES # (AUTO) 0.3 K/uL (2.5-16.5); LYMPHOCYTES % (AUTO) 1.2 % (20.5-51.1); MEAN CORPUSCULAR HEMOGLOBIN 27 pg (27-31); MEAN CORPUSCULAR HGB CONC 33 g/dL (33-37); MEAN CORPUSCULAR VOLUME 79.5 fL (80-94); MONOCYTES # (AUTO) 0.3 K/uL (0.8-1.0); MONOCYTES % (AUTO) 1.3 % (1.7-9.3); NEUTROPHILS % (AUTO) 96.2 % (42.2-75.2); PLATELET COUNT (AUTO) 463 K/uL (140-450); RED BLOOD CELL COUNT(AUTO) 4.49 MIL/uL (4.20-5.40); RED CELL DISTRIBUTION WIDTH 14.6 % (11.6-13.7); WHITE BLOOD COUNT (AUTO) 21.8 K/uL (4.8-10.8)
[2023-08-13 22:42] LABS: ALBUMIN 2.2 g/dL (3.4-5.0); ANION GAP 13.7 (8-16); CALCIUM 8.9 mg/dL (8.5-10.1); CARBON DIOXIDE 26.9 mmol/L (21-32); TOTAL PROTEIN, SERUM 7.5 g/dL (6.4-8.2)
[2023-08-13 22:44] LABS: CREATINE KINASE, TOTAL 32 U/L (26-192); LIPASE 30 U/L (16-77); POTASSIUM 2.6 mmol/L (3.5-5.1)
[2023-08-13 22:49] LABS: LACTIC ACID 4.9 mmol/L (0.4-2.0)
[2023-08-13] MEDS ORDERED: PIPERACILLIN/TAZOBACTAM 3.375 GM in DEXTROSE 5% 50 ML IV ONE (22:50)
[2023-08-13] MEDS ORDERED: VANCOMYCIN 1,000 MG in DEXTROSE 5% 250 ML IV ONE (22:50)
[2023-08-13] MEDS ORDERED: POTASSIUM CHLORIDE 40 MEQ, LIDOCAINE 1% 25 MG in NACL 0.9% 250 ML IV ONE (22:50)
[2023-08-13] MEDS ORDERED: PIPERACILLIN/TAZOBACTAM 3.375 GM VIAL IV ONE (23:30)
[2023-08-13] MEDS ORDERED: VANCOMYCIN 1,000 MG VIAL ONE (23:43)
[2023-08-13] MEDS ORDERED: KCL 20 MEQ IN 100 mL PREMIX 200 ML IV ONE (23:50)
[2023-08-14] VITALS (7 sets, daily range): BP systolic 110–125; BP diastolic 57–61; PULSE 88–100; RESP 18–24; TEMP 97.8–99.3; O2SAT 94–100
[2023-08-14 00:27] LABS: FLU A ANTIGEN negative (NEGATIVE); FLU B ANTIGEN NEGATIVE (NEGATIVE)
[2023-08-14] MEDS: NACL 0.9% 1,000 ML IV SCH ×3 (00:35→20:35)
[2023-08-14] MEDS ORDERED: MORPHINE SULFATE 2 MG/ML SYR IVP PRN (00:35)
[2023-08-14] MEDS ORDERED: LORazepam 2 MG/ML VIAL IVP PRN (00:35)
[2023-08-14] MEDS ORDERED: HYDROcodone/APAP 5/325 MG 1 TAB TAB PO PRN (00:35)
[2023-08-14] MEDS ORDERED: ACETAMINOPHEN 325 MG TAB PO PRN (00:35)
[2023-08-14] MEDS ORDERED: ONDANSETRON 4 MG/2 ML VIAL IVP PRN (00:35)
[2023-08-14] MEDS ORDERED: VANCOMYCIN PER PHARMACY MC PRN (00:35)
[2023-08-14] MEDS ORDERED: PIPERACILLIN/TAZOBACTAM 3.375 GM VIAL IV ONE (05:20)
[2023-08-14] MEDS ORDERED: PIPERACILLIN/TAZOBACTAM 2.25 GM VIAL IV ONE (05:33)
[2023-08-14] MEDS: PIPERACILLIN/TAZOBACTAM 2.25 GM in DEXTROSE 5% 50 ML IV SCH ×3 (05:35→23:19)
[2023-08-14 08:04] LABS: ANION GAP 10.7 (8-16); CALCIUM 8.1 mg/dL (8.5-10.1); CARBON DIOXIDE 28.1 mmol/L (21-32); CREATININE 0.7 mg/dL (0.6-1.3)
[2023-08-14 08:18] LABS: POTASSIUM 2.8 mmol/L (3.5-5.1)
[2023-08-14] MEDS: KCL 20 MEQ IN 100 mL PREMIX 100 ML IV SCH ×2 (10:28→12:00)
[2023-08-14] MEDS: VANCOMYCIN 750 MG in DEXTROSE 5% 250 ML IV SCH (12:00)
[2023-08-14] MEDS ORDERED: MAG SULF 2000 MG/WATER PREMIX 100 ML IV ONE (23:30)
[2023-08-15] VITALS: BP 118/61; PULSE 88; PULSE 93; RESP 18; TEMP 97.9; O2SAT 95
[2023-08-15] MEDS: VANCOMYCIN 750 MG in DEXTROSE 5% 250 ML IV SCH (00:43)
[2023-08-15] MEDS: NACL 0.9% 1,000 ML IV SCH ×2 (01:08→16:35)
[2023-08-15] MEDS ORDERED: KCL 20 MEQ IN 100 mL PREMIX 100 ML IV ONE (03:06)
[2023-08-15] MEDS: KCL 20 MEQ IN 100 mL PREMIX 100 ML IV SCH (03:12)
[2023-08-15 04:00] VITALS: BP 117/61; PULSE 83; PULSE 84; RESP 18; TEMP 98.5; O2SAT 97
[2023-08-15] MEDS ORDERED: MAG SULF 2000 MG/WATER PREMIX 50 ML IV ONE (06:02)
[2023-08-15] MEDS: PIPERACILLIN/TAZOBACTAM 2.25 GM in DEXTROSE 5% 50 ML IV SCH ×3 (06:07→20:35)
[2023-08-15 06:43] LABS: BASOPHILS # (AUTO) 0.1 K/uL (0.00-0.22); BASOPHILS % (AUTO) 0.7 % (0.0-2.0); EOSINOPHILS # (AUTO) 0.1 K/uL (0-0.4); EOSINOPHILS % (AUTO) 0.6 % (0.0-4.0); HEMATOCRIT 29.9 % (36-48); HEMOGLOBIN 10.2 g/dL (12.0-16.0); LYMPHOCYTES # (AUTO) 1.3 K/uL (2.5-16.5); LYMPHOCYTES % (AUTO) 8.8 % (20.5-51.1); MEAN CORPUSCULAR HEMOGLOBIN 27 pg (27-31); MEAN CORPUSCULAR HGB CONC 34 g/dL (33-37); MEAN CORPUSCULAR VOLUME 78.9 fL (80-94); MONOCYTES # (AUTO) 1.2 K/uL (0.8-1.0); MONOCYTES % (AUTO) 7.7 % (1.7-9.3); NEUTROPHILS # (AUTO) 12.3 K/uL (1.8-7.7); NEUTROPHILS % (AUTO) 82.2 % (42.2-75.2); PLATELET COUNT (AUTO) 383 K/uL (140-450); RED BLOOD CELL COUNT(AUTO) 3.79 MIL/uL (4.20-5.40); RED CELL DISTRIBUTION WIDTH 14.5 % (11.6-13.7)
[2023-08-15 06:56] LABS: ALBUMIN 1.7 g/dL (3.4-5.0); ANION GAP 9.6 (8-16); CALCIUM 7.8 mg/dL (8.5-10.1); CARBON DIOXIDE 26.7 mmol/L (21-32); CREATININE 0.5 mg/dL (0.6-1.3); MAGNESIUM 1.3 mg/dL (1.8-2.4); POTASSIUM 3.3 mmol/L (3.5-5.1); TOTAL BILIRUBIN 0.5 mg/dL (0.0-1.0)
[2023-08-15 08:00] VITALS: BP 134/55; PULSE 85; PULSE 93; RESP 18; TEMP 98.1; O2SAT 100
[2023-08-15] MEDS: POTASSIUM CHLORIDE 10 MEQ TABER PO PRN (09:53)
[2023-08-15] MEDS ORDERED: DEXTROSE 50% 50 ML SYR IVP PRN (11:55)
[2023-08-15 12:00] VITALS: BP 140/62; PULSE 84; PULSE 94; RESP 18; TEMP 98.2; O2SAT 96
[2023-08-15] MEDS: INSULIN LISPRO SLIDING SCALE 100 UNITS/ML VIAL SUBQ PRN (12:10)
[2023-08-15] MEDS: VANCOMYCIN 1.25GM PREMIX 250 ML IV SCH (12:45)
[2023-08-15 16:00] VITALS: BP 132/69; PULSE 103; PULSE 85; RESP 16; TEMP 99.6; O2SAT 99
[2023-08-15] MEDS: BLOOD GLUCOSE MONITORING 1 DEV DEV FS SCH ×2 (16:30→21:13)
[2023-08-15 20:00] VITALS: BP 152/66; PULSE 80; PULSE 90; PULSE 91; RESP 18; RESP 20; TEMP 98; O2SAT 100; O2SAT 96
[2023-08-16] VITALS: BP 141/76; PULSE 81; PULSE 82; RESP 20; TEMP 97.6; O2SAT 97
[2023-08-16] MEDS: VANCOMYCIN 1.25GM PREMIX 250 ML IV SCH ×2 (00:09→12:18)
[2023-08-16] MEDS: NACL 0.9% 1,000 ML IV SCH ×3 (02:35→22:45)
[2023-08-16 04:00] VITALS: BP 133/53; PULSE 78; PULSE 82; RESP 18; TEMP 98.1; O2SAT 99
[2023-08-16] MEDS: PIPERACILLIN/TAZOBACTAM 2.25 GM in DEXTROSE 5% 50 ML IV SCH ×3 (04:37→21:02)
[2023-08-16 06:58] LABS: BASOPHILS # (AUTO) 0.1 K/uL (0.00-0.22); BASOPHILS % (AUTO) 0.6 % (0.0-2.0); EOSINOPHILS # (AUTO) 0.1 K/uL (0-0.4); EOSINOPHILS % (AUTO) 0.4 % (0.0-4.0); HEMATOCRIT 31.3 % (36-48); HEMOGLOBIN 10.6 g/dL (12.0-16.0); LYMPHOCYTES # (AUTO) 1.4 K/uL (2.5-16.5); LYMPHOCYTES % (AUTO) 9.8 % (20.5-51.1); MEAN CORPUSCULAR HEMOGLOBIN 27 pg (27-31); MEAN CORPUSCULAR HGB CONC 34 g/dL (33-37); MEAN CORPUSCULAR VOLUME 79.2 fL (80-94); MONOCYTES % (AUTO) 7.3 % (1.7-9.3); NEUTROPHILS # (AUTO) 11.6 K/uL (1.8-7.7); NEUTROPHILS % (AUTO) 81.9 % (42.2-75.2); PLATELET COUNT (AUTO) 384 K/uL (140-450); RED BLOOD CELL COUNT(AUTO) 3.95 MIL/uL (4.20-5.40); RED CELL DISTRIBUTION WIDTH 14.3 % (11.6-13.7); WHITE BLOOD COUNT (AUTO) 14.2 K/uL (4.8-10.8)
[2023-08-16] MEDS: BLOOD GLUCOSE MONITORING 1 DEV DEV FS SCH ×4 (07:30→21:05)
[2023-08-16 08:25] LABS: ANION GAP 13.6 (8-16); CALCIUM 8.5 mg/dL (8.5-10.1); CREATININE 0.5 mg/dL (0.6-1.3); POTASSIUM 3.6 mmol/L (3.5-5.1)
[2023-08-16 10:58] VITALS: BP 150/71; PULSE 79; RESP 18; TEMP 98.1; O2SAT 98
[2023-08-16] MEDS: INSULIN LISPRO SLIDING SCALE 100 UNITS/ML VIAL SUBQ PRN ×3 (11:57→20:37)
[2023-08-16] MEDS ORDERED: MAG SULF 2000 MG/WATER PREMIX 100 ML IV SCH (12:00)
[2023-08-16 16:01] VITALS: BP 126/63; PULSE 76; RESP 18; TEMP 99.2; O2SAT 98
[2023-08-16 20:00] VITALS: PULSE 98; RESP 18; O2SAT 93
[2023-08-16 21:00] VITALS: BP 126/63; PULSE 93; RESP 16; TEMP 98.4; O2SAT 98
[2023-08-17] VITALS: BP 126/63; PULSE 93; RESP 16; TEMP 98.4; O2SAT 98
[2023-08-17] MEDS: VANCOMYCIN 1.25GM PREMIX 250 ML IV SCH ×2 (00:23→12:08)
[2023-08-17 04:00] VITALS: BP 144/67; PULSE 68; RESP 16; TEMP 98.1; O2SAT 95
[2023-08-17] MEDS: PIPERACILLIN/TAZOBACTAM 2.25 GM in DEXTROSE 5% 50 ML IV SCH ×3 (04:45→20:40)
[2023-08-17] MEDS: BLOOD GLUCOSE MONITORING 1 DEV DEV FS SCH ×4 (06:32→20:43)
[2023-08-17 07:30] LABS: ANION GAP 14.5 (8-16); CALCIUM 8.5 mg/dL (8.5-10.1); CARBON DIOXIDE 25.5 mmol/L (21-32); CREATININE 0.6 mg/dL (0.6-1.3)
[2023-08-17 08:00] VITALS: BP 129/48; PULSE 65; RESP 18; TEMP 97.5; O2SAT 96
[2023-08-17 09:14] LABS: BASOPHILS # (AUTO) 0.1 K/uL (0.00-0.22); BASOPHILS % (AUTO) 0.4 % (0.0-2.0); EOSINOPHILS # (AUTO) 0.1 K/uL (0-0.4); EOSINOPHILS % (AUTO) 0.2 % (0.0-4.0); HEMATOCRIT 33.9 % (36-48); LYMPHOCYTES # (AUTO) 1.7 K/uL (2.5-16.5); LYMPHOCYTES % (AUTO) 8.2 % (20.5-51.1); MEAN CORPUSCULAR HEMOGLOBIN 26 pg (27-31); MEAN CORPUSCULAR HGB CONC 32 g/dL (33-37); MEAN CORPUSCULAR VOLUME 80.6 fL (80-94); MONOCYTES # (AUTO) 1.1 K/uL (0.8-1.0); MONOCYTES % (AUTO) 5.4 % (1.7-9.3); NEUTROPHILS # (AUTO) 17.9 K/uL (1.8-7.7); NEUTROPHILS % (AUTO) 85.8 % (42.2-75.2); PLATELET COUNT (AUTO) 400 K/uL (140-450); RED BLOOD CELL COUNT(AUTO) 4.21 MIL/uL (4.20-5.40); RED CELL DISTRIBUTION WIDTH 14.6 % (11.6-13.7); WHITE BLOOD COUNT (AUTO) 20.9 K/uL (4.8-10.8)
[2023-08-17] MEDS: NACL 0.9% 1,000 ML IV SCH ×2 (09:16→19:22)
[2023-08-17] MEDS: INSULIN LISPRO SLIDING SCALE 100 UNITS/ML VIAL SUBQ PRN ×3 (11:41→20:45)
[2023-08-17] MEDS: POTASSIUM CHLORIDE 10 MEQ TABER PO PRN (12:08)
[2023-08-17 12:56] LABS: INR 1.11 (0.8-1.2); PROTHROMBIN TIME 11.5 secs (10.8-13.4)
[2023-08-17 13:17] LABS: PARTIAL THROMBOPLASTIN TIME 34.1 secs (22-35.6)
[2023-08-17 20:00] VITALS: BP 109/45; PULSE 78; RESP 18; TEMP 98.1; O2SAT 99
[2023-08-18] MEDS: VANCOMYCIN 1.25GM PREMIX 250 ML IV SCH ×2 (00:15→12:16)
[2023-08-18 04:00] VITALS: BP 132/59; PULSE 70; RESP 18; TEMP 98.1; O2SAT 100
[2023-08-18] MEDS: NACL 0.9% 1,000 ML IV SCH ×2 (05:10→14:35)
[2023-08-18] MEDS: PIPERACILLIN/TAZOBACTAM 2.25 GM in DEXTROSE 5% 50 ML IV SCH ×2 (05:10→12:55)
[2023-08-18] MEDS: BLOOD GLUCOSE MONITORING 1 DEV DEV FS SCH ×4 (06:35→21:33)
[2023-08-18] MEDS: INSULIN LISPRO SLIDING SCALE 100 UNITS/ML VIAL SUBQ PRN ×4 (06:38→21:24)
[2023-08-18 07:11] LABS: BASOPHILS # (AUTO) 0.1 K/uL (0.00-0.22); BASOPHILS % (AUTO) 0.6 % (0.0-2.0); EOSINOPHILS # (AUTO) 0.1 K/uL (0-0.4); HEMATOCRIT 30.8 % (36-48); HEMOGLOBIN 10.1 g/dL (12.0-16.0); LYMPHOCYTES # (AUTO) 1.8 K/uL (2.5-16.5); LYMPHOCYTES % (AUTO) 13.2 % (20.5-51.1); MEAN CORPUSCULAR HEMOGLOBIN 27 pg (27-31); MEAN CORPUSCULAR HGB CONC 33 g/dL (33-37); MEAN CORPUSCULAR VOLUME 80.4 fL (80-94); MONOCYTES % (AUTO) 7.6 % (1.7-9.3); NEUTROPHILS # (AUTO) 10.6 K/uL (1.8-7.7); NEUTROPHILS % (AUTO) 77.6 % (42.2-75.2); PLATELET COUNT (AUTO) 372 K/uL (140-450); RED BLOOD CELL COUNT(AUTO) 3.83 MIL/uL (4.20-5.40); RED CELL DISTRIBUTION WIDTH 14.4 % (11.6-13.7); WHITE BLOOD COUNT (AUTO) 13.7 K/uL (4.8-10.8)
[2023-08-18 07:53] LABS: CALCIUM 8.2 mg/dL (8.5-10.1); CARBON DIOXIDE 23.3 mmol/L (21-32); CREATININE 0.5 mg/dL (0.6-1.3)
[2023-08-18 08:13] LABS: POTASSIUM 3.3 mmol/L (3.5-5.1)
[2023-08-18] MEDS ORDERED: POTASSIUM CHLORIDE 40 MEQ, LIDOCAINE 1% 25 MG in NACL 0.9% 250 ML IV SCH (10:30)
[2023-08-18 12:13] VITALS: PULSE 72; RESP 18; O2SAT 98
[2023-08-18 16:00] VITALS: BP 147/76; PULSE 75; RESP 16; TEMP 97.8; O2SAT 100
[2023-08-18 20:00] VITALS: BP 160/80; PULSE 102; PULSE 78; RESP 18; RESP 20; TEMP 98.4; O2SAT 96; O2SAT 98
[2023-08-19] VITALS: BP 164/76; PULSE 75; RESP 18; TEMP 98.2; O2SAT 95
[2023-08-19] MEDS: VANCOMYCIN 1.25GM PREMIX 250 ML IV SCH ×2 (00:11→12:34)
[2023-08-19 04:00] VITALS: BP 154/75; PULSE 74; RESP 18; TEMP 97.6; O2SAT 95
[2023-08-19] MEDS: INSULIN LISPRO SLIDING SCALE 100 UNITS/ML VIAL SUBQ PRN ×4 (07:03→20:32)
[2023-08-19 07:22] LABS: ANION GAP 12.8 (8-16); CALCIUM 8.2 mg/dL (8.5-10.1); CARBON DIOXIDE 23.7 mmol/L (21-32); CREATININE 0.5 mg/dL (0.6-1.3); POTASSIUM 3.5 mmol/L (3.5-5.1)
[2023-08-19 08:00] VITALS: BP 160/77; PULSE 73; RESP 16; TEMP 97.4; O2SAT 95
[2023-08-19] MEDS ORDERED: VANCOMYCIN PER PHARMACY MC PRN (08:45)
[2023-08-19] MEDS: BLOOD GLUCOSE MONITORING 1 DEV DEV FS SCH ×3 (12:00→20:28)
[2023-08-19] MEDS: PIPERACILLIN/TAZOBACTAM 3.375 GM in DEXTROSE 5% 50 ML IV SCH ×2 (14:21→20:30)
[2023-08-19 16:00] VITALS: BP 172/74; PULSE 18; PULSE 67; RESP 18; TEMP 98.2; O2SAT 99
[2023-08-19] MEDS: NACL 0.9% 1,000 ML IV SCH ×2 (17:14→20:35)
[2023-08-19] MEDS: hydrALAZINE 20 MG/ML VIAL IVP PRN (17:39)
[2023-08-19 20:00] VITALS: BP 151/68; PULSE 81; RESP 16; RESP 18; TEMP 98.1; O2SAT 98
[2023-08-20] VITALS: RESP 18; O2SAT 98
[2023-08-20] MEDS: VANCOMYCIN 1.25GM PREMIX 250 ML IV SCH ×2 (00:35→13:02)
[2023-08-20] MEDS: NACL 0.9% 1,000 ML IV SCH ×3 (00:37→16:35)
[2023-08-20] MEDS: PIPERACILLIN/TAZOBACTAM 3.375 GM in DEXTROSE 5% 50 ML IV SCH ×3 (05:52→22:10)
[2023-08-20] MEDS: hydrALAZINE 20 MG/ML VIAL IVP PRN (06:35)
[2023-08-20] MEDS: INSULIN LISPRO SLIDING SCALE 100 UNITS/ML VIAL SUBQ PRN ×3 (06:36→20:54)
[2023-08-20] MEDS: BLOOD GLUCOSE MONITORING 1 DEV DEV FS SCH ×4 (06:49→20:50)
[2023-08-20 08:00] VITALS: BP 145/66; PULSE 66; RESP 18; TEMP 99.2; O2SAT 97
[2023-08-20 09:12] LABS: BASOPHILS # (AUTO) 0.1 K/uL (0.00-0.22); BASOPHILS % (AUTO) 0.6 % (0.0-2.0); EOSINOPHILS # (AUTO) 0.1 K/uL (0-0.4); EOSINOPHILS % (AUTO) 0.5 % (0.0-4.0); HEMATOCRIT 33.4 % (36-48); LYMPHOCYTES # (AUTO) 1.8 K/uL (2.5-16.5); LYMPHOCYTES % (AUTO) 13.7 % (20.5-51.1); MEAN CORPUSCULAR HEMOGLOBIN 26 pg (27-31); MEAN CORPUSCULAR HGB CONC 33 g/dL (33-37); MEAN CORPUSCULAR VOLUME 78.6 fL (80-94); MONOCYTES # (AUTO) 0.9 K/uL (0.8-1.0); MONOCYTES % (AUTO) 6.8 % (1.7-9.3); NEUTROPHILS # (AUTO) 10.2 K/uL (1.8-7.7); NEUTROPHILS % (AUTO) 78.4 % (42.2-75.2); PLATELET COUNT (AUTO) 394 K/uL (140-450); RED BLOOD CELL COUNT(AUTO) 4.24 MIL/uL (4.20-5.40); RED CELL DISTRIBUTION WIDTH 14.7 % (11.6-13.7); WHITE BLOOD COUNT (AUTO) 13.1 K/uL (4.8-10.8)
[2023-08-20 09:14] LABS: ANION GAP 12.7 (8-16); CALCIUM 8.4 mg/dL (8.5-10.1); CARBON DIOXIDE 25.4 mmol/L (21-32); CREATININE 0.6 mg/dL (0.6-1.3); POTASSIUM 3.1 mmol/L (3.5-5.1)
[2023-08-20 16:00] VITALS: BP 152/84; PULSE 81; RESP 18; TEMP 97.8; O2SAT 97
[2023-08-20] MEDS: POTASSIUM CHLORIDE 10 MEQ TABER PO PRN (18:54)
[2023-08-20 20:00] VITALS: BP 106/48; PULSE 84; RESP 18; TEMP 98.5; O2SAT 95
[2023-08-21] MEDS: VANCOMYCIN 1.25GM PREMIX 250 ML IV SCH ×3 (00:01→23:30)
[2023-08-21] MEDS: NACL 0.9% 1,000 ML IV SCH ×4 (02:35→23:07)
[2023-08-21] MEDS: PIPERACILLIN/TAZOBACTAM 3.375 GM in DEXTROSE 5% 50 ML IV SCH ×3 (05:36→20:26)
[2023-08-21] MEDS: INSULIN LISPRO SLIDING SCALE 100 UNITS/ML VIAL SUBQ PRN ×4 (06:04→20:31)
[2023-08-21] MEDS: BLOOD GLUCOSE MONITORING 1 DEV DEV FS SCH ×4 (07:35→20:25)
[2023-08-21 08:00] VITALS: BP 133/61; PULSE 66; PULSE 72; RESP 18; RESP 19; TEMP 97.2; O2SAT 95; O2SAT 97
[2023-08-21 12:40] LABS: ANION GAP 11.8 (8-16); CALCIUM 8.2 mg/dL (8.5-10.1); CARBON DIOXIDE 25.3 mmol/L (21-32); POTASSIUM 3.1 mmol/L (3.5-5.1)
[2023-08-21 13:01] LABS: CREATININE 0.5 mg/dL (0.6-1.3)
[2023-08-21 16:00] VITALS: BP 143/72; PULSE 71; RESP 18; TEMP 98; O2SAT 97
[2023-08-21] MEDS: POTASSIUM CHLORIDE 10 MEQ TABER PO PRN (18:45)
[2023-08-21 20:00] VITALS: BP 148/61; PULSE 88; RESP 18; TEMP 97.7; O2SAT 95
[2023-08-22] MEDS: PIPERACILLIN/TAZOBACTAM 3.375 GM in DEXTROSE 5% 50 ML IV SCH ×3 (04:33→20:58)
[2023-08-22] MEDS: BLOOD GLUCOSE MONITORING 1 DEV DEV FS SCH ×4 (06:42→20:58)
[2023-08-22] MEDS: INSULIN LISPRO SLIDING SCALE 100 UNITS/ML VIAL SUBQ PRN ×3 (06:47→21:02)
[2023-08-22 08:00] VITALS: PULSE 78; RESP 18; O2SAT 96
[2023-08-22] MEDS: NACL 0.9% 1,000 ML IV SCH ×2 (08:35→18:35)
[2023-08-22] MEDS ORDERED: GELATIN SPONGE 100 1 SPG TP ONE (08:45)
[2023-08-22] MEDS ORDERED: LIDOCAINE 1% 500 MG/50 ML VIAL ONE (09:48)
[2023-08-22] MEDS ORDERED: MIDAZOLAM 2 MG/2 ML VIAL ONE (09:48)
[2023-08-22] MEDS ORDERED: fentaNYL citrate 0.05 MG/ML VIAL ONE ×2 (09:48→10:59)
[2023-08-22] MEDS: VANCOMYCIN 1.25GM PREMIX 250 ML IV SCH ×2 (14:21→23:23)
[2023-08-22 16:00] VITALS: BP 126/51; PULSE 88; RESP 20; TEMP 98.4; O2SAT 94
[2023-08-22 20:00] VITALS: BP 114/71; PULSE 84; RESP 18; TEMP 97.8; O2SAT 97
[2023-08-22] MEDS: POTASSIUM CHLORIDE 10 MEQ TABER PO PRN (21:05)
[2023-08-23] MEDS: PIPERACILLIN/TAZOBACTAM 3.375 GM in DEXTROSE 5% 50 ML IV SCH ×2 (04:30→12:30)
[2023-08-23] MEDS: NACL 0.9% 1,000 ML IV SCH ×2 (04:35→14:35)
[2023-08-23] MEDS: INSULIN LISPRO SLIDING SCALE 100 UNITS/ML VIAL SUBQ PRN ×2 (06:12→12:26)
[2023-08-23] MEDS: BLOOD GLUCOSE MONITORING 1 DEV DEV FS SCH ×2 (06:25→12:25)
[2023-08-23 08:31] VITALS: PULSE 82; RESP 20; O2SAT 99
[2023-08-23] MEDS ORDERED: LACT1TAB47 PO (10:02)
[2023-08-23] MEDS ORDERED: CEPH500C16 PO (10:02)
[2023-08-23] MEDS: VANCOMYCIN 1.25GM PREMIX 250 ML IV SCH (12:22)
[2023-08-23 14:04] VITALS: BP 125/80; PULSE 68; RESP 20; TEMP 97.1
== END 2023-08-23 16:30 | disposition home or self-care (01) | DRG 720 ==
LOC: MED 19:16 → MTU 08-14 00:37
PROVIDERS: ADMIT Student in an Organized Health Care Education/Training Program; ATTEND Student in an Organized Health Care Education/Training Program
PROC: 0F903ZX Drainage of Liver, Percutaneous Approach, Diagnostic (ICD-10-PCS; principal; 2023-08-22)
PROC: BF45ZZZ Ultrasonography of Liver (ICD-10-PCS; 2023-08-22)
PROC: 0F9030Z Drainage of Liver with Drainage Device, Percutaneous Approach (ICD-10-PCS; 2023-08-22)
DX: A41.59 Other Gram-negative sepsis (principal); K75.0 Abscess of liver; E87.20 Acidosis, unspecified; E11.51 Type 2 diabetes mellitus with diabetic peripheral angiopathy without gangrene; E44.0 Moderate protein-calorie malnutrition; E87.1 Hypo-osmolality and hyponatremia; L02.211 Cutaneous abscess of abdominal wall; N30.80 Other cystitis without hematuria; E86.1 Hypovolemia; Z20.822 Contact with and (suspected) exposure to COVID-19; E78.5 Hyperlipidemia, unspecified; E86.0 Dehydration; I10 Essential (primary) hypertension; E87.6 Hypokalemia; R65.20 Severe sepsis without septic shock; Z90.49 Acquired absence of other specified parts of digestive tract; Z68.27 Body mass index [BMI] 27.0-27.9, adult; E11.9 Type 2 diabetes mellitus without complications
CPT/HCPCS: 36415; 71045; 75989; 76641; 76705; 77012; 80048; 80053; 80202; 81001; 82105; 82533; 82550; 82948; 83605; 83690; 83735; 83880; 83930; 83935; 84133; 84300; 84443; 84484; 85025; 85610; 85730; 87040; 87070; 87075; 87081; 87086; 87205; 93005; 96361; 96365; 96367; 99291; J0360; J0696; J1644; J1815; J2001; J2250; J2543; J3010; J3370; J3372; J3475; J3480; J7030; J7060; Q0092; Q9967

== ENCOUNTER 2023-08-28 20:03 | Emergency (ER) | payer OTHER ==
[~2023-08-28] VITALS: Ht 160 cm; Wt 72.6 kg
[~2023-08-28 20:03] MED LIST changes: +CEPH500C16 PO; -CEPH500T PO; -CIPR500T4 PO; +LACT1TAB47 PO; -PHEN-1877 PO
[2023-08-28 20:10] VITALS: BP 138/65; PULSE 98; RESP 17; TEMP 97.9; O2SAT 100
== END 2023-08-28 22:45 | disposition left against medical advice (07) ==
LOC: MED 20:03
DX: Z46.59 Encounter for fitting and adjustment of other gastrointestinal appliance and device (principal); Z53.21 Procedure and treatment not carried out due to patient leaving prior to being seen by health care provider
CPT/HCPCS: 99281

== ENCOUNTER 2023-12-14 22:36 | Inpatient (IN) | payer MEDICAID, OTHER ==
[~2023-12-14] VITALS: Ht 154.9 cm; Wt 67.6 kg
[2023-12-14 22:46] VITALS: BP 105/58; PULSE 96; RESP 18; TEMP 99.3; O2SAT 100
[2023-12-15] MEDS: NACL 0.9% 1,000 ML IV ONE ×2 (01:01→04:04)
[2023-12-15 01:11] LABS: BASOPHILS # (AUTO) 0.1 K/uL (0.00-0.22); BASOPHILS % (AUTO) 0.6 % (0.0-2.0); EOSINOPHILS % (AUTO) 0.1 % (0.0-4.0); HEMATOCRIT 30.7 % (36-48); HEMOGLOBIN 10.6 g/dL (12.0-16.0); LYMPHOCYTES # (AUTO) 1.4 K/uL (2.5-16.5); LYMPHOCYTES % (AUTO) 7.9 % (20.5-51.1); MEAN CORPUSCULAR HEMOGLOBIN 26 pg (27-31); MEAN CORPUSCULAR HGB CONC 35 g/dL (33-37); MEAN CORPUSCULAR VOLUME 76.4 fL (80-94); MONOCYTES # (AUTO) 1.2 K/uL (0.8-1.0); MONOCYTES % (AUTO) 6.6 % (1.7-9.3); NEUTROPHILS # (AUTO) 14.8 K/uL (1.8-7.7); NEUTROPHILS % (AUTO) 84.8 % (42.2-75.2); PLATELET COUNT (AUTO) 359 K/uL (140-450); RED BLOOD CELL COUNT(AUTO) 4.02 MIL/uL (4.20-5.40); WHITE BLOOD COUNT (AUTO) 17.4 K/uL (4.8-10.8)
[2023-12-15 01:25] LABS: ANION GAP 8.5 (8-16); CALCIUM 8.9 mg/dL (8.5-10.1); CREATININE 0.6 mg/dL (0.6-1.3)
[2023-12-15 01:31] LABS: POTASSIUM 2.5 mmol/L (3.5-5.1)
[2023-12-15] MEDS: KCL 20 MEQ IN 100 mL PREMIX 200 ML IV ONE (01:35)
[2023-12-15] MEDS: POTASSIUM CHLORIDE 10 MEQ TABER PO ONE (01:46)
[2023-12-15] MEDS: KCL 20 MEQ IN 100 mL PREMIX 100 ML IV ONE (02:00)
[2023-12-15 04:21] LABS: APPEARANCE,URINE HAZY (CLEAR); BILIRUBIN,URINE NEGATIVE (NEGATIVE); BLOOD, URINE 3+ (NEGATIVE); COLOR,URINE YELLOW (YELLOW); LEUKOCYTE ESTERASE ,URINE 2+ (NEGATIVE); NITRITE, URINE POSITIVE (NEGATIVE); PROTEIN,URINE TRACE (NEGATIVE); UGLUCOSE NEGATIVE (NEGATIVE); UROBILINOGEN,URINE 0.2 EU/dL (0.2 - 1)
[2023-12-15 04:25] LABS: BACTERIA,URINE 4+ /HPF (None Seen); RBC,URINE 11-20 (MOD) /HPF (0-5); SQUAMOUS EPITHELIAL CELL,UR 20-50 /LPF (0-3 (FEW)); WBC,URINE TOO MANY TO COUNT /HPF (0-5); YEAST,URINE Many /HPF (None Seen)
[2023-12-15] MEDS ORDERED: cefTRIAXone 1,000 MG VIAL ONE (05:25)
[2023-12-15] MEDS: NACL 0.9% 1,000 ML IV SCH (08:37)
[2023-12-15 09:33] VITALS: BP 130/64; RESP 18; TEMP 98.1; O2SAT 100
[2023-12-15 10:19] VITALS: PULSE 78; RESP 19; O2SAT 97
[2023-12-15] MEDS ORDERED: MELATONIN 3 MG TAB PO PRN (11:05)
[2023-12-15] MEDS ORDERED: MORPHINE SULFATE 2 MG/ML SYR IVP PRN (11:05)
[2023-12-15] MEDS ORDERED: ONDANSETRON 4 MG/2 ML VIAL IVP PRN (11:05)
[2023-12-15] MEDS ORDERED: POLYETHYLENE GLYCOL 17 GM/PKT PO PRN (11:05)
[2023-12-15] MEDS ORDERED: HYDROcodone/APAP 5/325 MG 1 TAB TAB PO PRN (11:05)
[2023-12-15] MEDS ORDERED: ACETAMINOPHEN 325 MG TAB PO PRN (11:05)
[2023-12-15 16:00] VITALS: BP 118/61; PULSE 74; RESP 19; TEMP 97.6; O2SAT 99
[2023-12-15 20:00] VITALS: BP 138/71; PULSE 89; RESP 18; RESP 20; TEMP 97.4; O2SAT 94
[2023-12-16 06:48] LABS: ALBUMIN 1.8 g/dL (3.4-5.0); ANION GAP 11.5 (8-16); BASOPHILS % (AUTO) 0.2 % (0.0-2.0); CALCIUM 9.2 mg/dL (8.5-10.1); CARBON DIOXIDE 25.7 mmol/L (21-32); CREATININE 0.5 mg/dL (0.6-1.3); EOSINOPHILS % (AUTO) 0.2 % (0.0-4.0); HEMOGLOBIN 10.3 g/dL (12.0-16.0); LYMPHOCYTES # (AUTO) 1.5 K/uL (2.5-16.5); LYMPHOCYTES % (AUTO) 9.2 % (20.5-51.1); MAGNESIUM 1.2 mg/dL (1.8-2.4); MEAN CORPUSCULAR HEMOGLOBIN 27 pg (27-31); MEAN CORPUSCULAR HGB CONC 34 g/dL (33-37); MONOCYTES # (AUTO) 1.3 K/uL (0.8-1.0); NEUTROPHILS # (AUTO) 13.7 K/uL (1.8-7.7); NEUTROPHILS % (AUTO) 82.4 % (42.2-75.2); PHOSPHORUS 2.7 mg/dL (2.5-4.9); PLATELET COUNT (AUTO) 356 K/uL (140-450); POTASSIUM 3.2 mmol/L (3.5-5.1); RED CELL DISTRIBUTION WIDTH 15.5 % (11.6-13.7); TOTAL BILIRUBIN 0.9 mg/dL (0.0-1.0); TOTAL PROTEIN, SERUM 7.2 g/dL (6.4-8.2); WHITE BLOOD COUNT (AUTO) 16.6 K/uL (4.8-10.8)
[2023-12-16 08:00] VITALS: BP 113/56; PULSE 78; PULSE 89; RESP 18; TEMP 98; O2SAT 100; O2SAT 94
[2023-12-16] MEDS: MAG SULF 2000 MG/WATER PREMIX 50 ML IV PRN (16:44)
[2023-12-16] MEDS: POTASSIUM CHLORIDE 10 MEQ TABER PO PRN (16:45)
[2023-12-16 18:24] VITALS: BP 121/61; PULSE 72; RESP 18; TEMP 98; O2SAT 100
[2023-12-16 20:00] VITALS: BP 125/67; PULSE 90; RESP 16; RESP 20; TEMP 98.1; O2SAT 95
[2023-12-17 03:00] VITALS: BP 124/63; PULSE 85; RESP 17; TEMP 98.7; O2SAT 92
[2023-12-17 06:45] LABS: ALBUMIN 1.7 g/dL (3.4-5.0); ANION GAP 11.2 (8-16); CALCIUM 8.6 mg/dL (8.5-10.1); CARBON DIOXIDE 26.3 mmol/L (21-32); CREATININE 0.5 mg/dL (0.6-1.3); MAGNESIUM 1.4 mg/dL (1.8-2.4); PHOSPHORUS 2.3 mg/dL (2.5-4.9); POTASSIUM 3.5 mmol/L (3.5-5.1); TOTAL BILIRUBIN 0.9 mg/dL (0.0-1.0); TOTAL PROTEIN, SERUM 6.9 g/dL (6.4-8.2)
[2023-12-17 06:46] LABS: EOSINOPHILS # (AUTO) 0.6 K/uL (0-0.4); EOSINOPHILS % (AUTO) 4.3 % (0.0-4.0); HEMATOCRIT 30.9 % (36-48); HEMOGLOBIN 10.6 g/dL (12.0-16.0); LYMPHOCYTES # (AUTO) 1.2 K/uL (2.5-16.5); LYMPHOCYTES % (AUTO) 8.6 % (20.5-51.1); MEAN CORPUSCULAR HEMOGLOBIN 27 pg (27-31); MEAN CORPUSCULAR HGB CONC 34 g/dL (33-37); MEAN CORPUSCULAR VOLUME 77.3 fL (80-94); MONOCYTES # (AUTO) 2.4 K/uL (0.8-1.0); MONOCYTES % (AUTO) 17.6 % (1.7-9.3); NEUTROPHILS # (AUTO) 9.4 K/uL (1.8-7.7); NEUTROPHILS % (AUTO) 69.5 % (42.2-75.2); PLATELET COUNT (AUTO) 371 K/uL (140-450); RED BLOOD CELL COUNT(AUTO) 3.99 MIL/uL (4.20-5.40); RED CELL DISTRIBUTION WIDTH 15.3 % (11.6-13.7); WHITE BLOOD COUNT (AUTO) 13.6 K/uL (4.8-10.8)
== END 2023-12-17 19:40 | disposition left against medical advice (07) | DRG 720 ==
LOC: MED 22:36 → MTU 12-15 05:20
PROVIDERS: ADMIT Student in an Organized Health Care Education/Training Program; ATTEND Student in an Organized Health Care Education/Training Program
DX: A41.9 Sepsis, unspecified organism (principal); E87.1 Hypo-osmolality and hyponatremia; D50.9 Iron deficiency anemia, unspecified; N30.80 Other cystitis without hematuria; E11.9 Type 2 diabetes mellitus without complications; E87.6 Hypokalemia; M25.552 Pain in left hip; M25.551 Pain in right hip; R07.81 Pleurodynia; Z79.899 Other long term (current) drug therapy
CPT/HCPCS: 36415; 70450; 71045; 71111; 72170; 80048; 80053; 81001; 83735; 84100; 84484; 85025; 87040; 87081; 87086; 87186; 93005; 96361; 96365; 97116; 97163-GP; 99285; J0696; J3475; J3480; J7060; Q0092

== ENCOUNTER 2023-12-29 21:10 | Emergency (ER) | payer MEDICAID ==
[~2023-12-29] VITALS: Ht 160 cm; Wt 68.0 kg
[2023-12-29 21:31] VITALS: BP 97/53; PULSE 89; RESP 16; TEMP 97; O2SAT 98
[2023-12-29] MEDS ORDERED: ACET-10509 PO (22:53)
[2023-12-29] MEDS ORDERED: IBUP-2218 PO (22:53)
[2023-12-29] MEDS ORDERED: CEPH-588 PO (22:53)
[2023-12-29 23:08] VITALS: BP 106/54; PULSE 84; RESP 16; O2SAT 99
[2023-12-29] MEDS: cephALEXin 500 MG CAP PO ONE (23:15)
== END 2023-12-29 23:16 | disposition home or self-care (01) ==
LOC: MED 21:10
DX: S80.11XA Contusion of right lower leg, initial encounter (principal); L03.115 Cellulitis of right lower limb; E11.9 Type 2 diabetes mellitus without complications; Z79.899 Other long term (current) drug therapy; W23.0XXA Caught, crushed, jammed, or pinched between moving objects, initial encounter; Y93.89 Activity, other specified; Y92.89 Other specified places as the place of occurrence of the external cause; Y99.8 Other external cause status
CPT/HCPCS: 73590; 99283

== ENCOUNTER 2024-01-03 22:58 | Emergency (ER) | payer MEDICAID ==
[~2024-01-03] VITALS: Ht 160 cm; Wt 68.0 kg
[~2024-01-03 22:58] MED LIST changes: +ACET-10509 PO; +CEPH-588 PO; +IBUP-2218 PO
[2024-01-03 23:09] VITALS: BP 127/64; PULSE 90; RESP 17; TEMP 98; O2SAT 97
[2024-01-04 01:04] VITALS: O2SAT 99
[2024-01-04] MEDS: LIDOCAINE MPF 1% 10 MG/ML VIAL INJ ONE (02:47)
[2024-01-04] MEDS ORDERED: WATER STERILE 10 ML MC ONE (03:00)
[2024-01-04] MEDS: ceFAZolin 1,000 MG VIAL IM ONE (03:04)
[2024-01-04] MEDS ORDERED: CEPH-588 PO (03:17)
[2024-01-04] MEDS ORDERED: NAPR-54 PO (03:17)
[2024-01-04 03:36] VITALS: BP 170/62; PULSE 93; RESP 17; TEMP 98.4; O2SAT 99
== END 2024-01-04 03:36 | disposition home or self-care (01) ==
LOC: MED 22:58
DX: L03.115 Cellulitis of right lower limb (principal); E11.9 Type 2 diabetes mellitus without complications; Z79.1 Long term (current) use of non-steroidal anti-inflammatories (NSAID); Z79.84 Long term (current) use of oral hypoglycemic drugs; Z79.899 Other long term (current) drug therapy
CPT/HCPCS: 10060; 96372; 99283; J0690

== ENCOUNTER 2024-01-16 08:13 | Inpatient (IN) | payer MEDICAID ==
[~2024-01-16] VITALS: Ht 160 cm; Wt 68.0 kg
[~2024-01-16 08:13] MED LIST changes: -CEPH-588 PO; -IBUP-2213 PO; +SULF-59 PO
[2024-01-16 08:31] VITALS: BP 130/60; PULSE 79; RESP 18; TEMP 96.6; O2SAT 100
[2024-01-16 10:32] LABS: BASOPHILS % (AUTO) 0.2 % (0.0-2.0); EOSINOPHILS # (AUTO) 0.2 K/uL (0-0.4); EOSINOPHILS % (AUTO) 1.4 % (0.0-4.0); HEMATOCRIT 32.3 % (36-48); HEMOGLOBIN 10.8 g/dL (12.0-16.0); LYMPHOCYTES # (AUTO) 1.4 K/uL (2.5-16.5); LYMPHOCYTES % (AUTO) 12.1 % (20.5-51.1); MEAN CORPUSCULAR HEMOGLOBIN 27 pg (27-31); MEAN CORPUSCULAR HGB CONC 34 g/dL (33-37); MEAN CORPUSCULAR VOLUME 81.4 fL (80-94); MONOCYTES # (AUTO) 0.7 K/uL (0.8-1.0); MONOCYTES % (AUTO) 6.1 % (1.7-9.3); NEUTROPHILS # (AUTO) 9.2 K/uL (1.8-7.7); NEUTROPHILS % (AUTO) 80.2 % (42.2-75.2); PLATELET COUNT (AUTO) 368 K/uL (140-450); RED BLOOD CELL COUNT(AUTO) 3.96 MIL/uL (4.20-5.40); RED CELL DISTRIBUTION WIDTH 18.3 % (11.6-13.7); WHITE BLOOD COUNT (AUTO) 11.5 K/uL (4.8-10.8)
[2024-01-16 10:45] LABS: ANION GAP 13.2 (8-16); CALCIUM 9.3 mg/dL (8.5-10.1); CARBON DIOXIDE 26.9 mmol/L (21-32); CREATININE 0.9 mg/dL (0.6-1.3); POTASSIUM 3.1 mmol/L (3.5-5.1)
[2024-01-16 10:49] LABS: ALBUMIN 2.7 g/dL (3.4-5.0); BILIRUBIN,DIRECT 0.2 mg/dL (0.0-0.3); TOTAL BILIRUBIN 0.6 mg/dL (0.0-1.0); TOTAL PROTEIN, SERUM 7.4 g/dL (6.4-8.2)
[2024-01-16 10:55] LABS: LACTIC ACID 2.7 mmol/L (0.4-2.0)
[2024-01-16] MEDS ORDERED: PIPERACILLIN/TAZOBACTAM 3.375 GM VIAL IV ONE (11:25)
[2024-01-16] MEDS: PIPERACILLIN/TAZOBACTAM 3.375 GM in DEXTROSE 5% 50 ML IV ONE (11:34)
[2024-01-16] MEDS: POTASSIUM CHLORIDE 10 MEQ TABER PO ONE (11:35)
[2024-01-16] MEDS: NACL 0.9% 2,000 ML IV ONE (11:36)
[2024-01-16] MEDS: MORPHINE SULFATE 4 MG/ML SYR IVP ONE (12:21)
[2024-01-16] MEDS: ONDANSETRON 4 MG/2 ML VIAL IVP ONE (12:22)
[2024-01-16] MEDS: INSULIN REGULAR, HUMAN 100 UNIT/ML VIAL IVP ONE (13:03)
[2024-01-16] MEDS ORDERED: ONDANSETRON 4 MG/2 ML VIAL IVP PRN (13:20)
[2024-01-16] MEDS ORDERED: DEXTROSE 50% 50 ML SYR IVP PRN (13:20)
[2024-01-16] MEDS ORDERED: INSULIN LANTUS 100 UNITS/ML 10 ML VIAL SUBQ ONE (13:20)
[2024-01-16] MEDS ORDERED: ACETAMINOPHEN 325 MG TAB PO PRN (13:20)
[2024-01-16] MEDS ORDERED: LACTULOSE 20 GM/30 ML UDC PO PRN (13:20)
[2024-01-16] MEDS ORDERED: VANCOMYCIN PER PHARMACY MC PRN (13:30)
[2024-01-16] MEDS: VANCOMYCIN 750 MG in NACL 0.9% 250 ML IV SCH (15:00)
[2024-01-16] MEDS ORDERED: POTASSIUM CHL 20 MEQ/NACL 0.9% 1,000 ML IV ONE (15:13)
[2024-01-16] MEDS: POTASSIUM CHL 20 MEQ/NACL 0.9% 1,000 ML IV SCH (15:26)
[2024-01-16] MEDS ORDERED: VANCOMYCIN HCL 750 MG PDS IV ONE (15:29)
[2024-01-16] MEDS: INSULIN LANTUS 100 UNITS/ML 10 ML VIAL SUBQ SCH ×2 (16:10→20:18)
[2024-01-16] MEDS: MORPHINE SULFATE 2 MG/ML SYR IVP PRN (16:16)
[2024-01-16] MEDS: BLOOD GLUCOSE MONITORING 1 DEV DEV FS SCH (16:56)
[2024-01-16] MEDS: INSULIN LISPRO SLIDING SCALE 100 UNITS/ML VIAL SUBQ PRN (17:09)
[2024-01-16 17:42] VITALS: PULSE 65; RESP 18; O2SAT 100
[2024-01-16 19:59] VITALS: BP 158/77; PULSE 80; RESP 18; TEMP 97.5; O2SAT 98
[2024-01-16 20:00] VITALS: PULSE 80; RESP 18; O2SAT 98
[2024-01-16] MEDS: PIPERACILLIN/TAZOBACTAM 3.375 GM VIAL IV ONE (20:15)
[2024-01-16] MEDS: PIPERACILLIN/TAZOBACTAM 3.375 GM in DEXTROSE 5% 50 ML IV SCH (20:15)
[2024-01-16] MEDS ORDERED: INSULIN LANTUS 100 UNITS/ML 10 ML VIAL SUBQ SCH (21:00)
[2024-01-17 03:36] VITALS: BP 147/64; PULSE 72; RESP 18; TEMP 97.2; O2SAT 98
[2024-01-17] MEDS: PIPERACILLIN/TAZOBACTAM 3.375 GM VIAL IV ONE (04:06)
[2024-01-17 07:11] LABS: BASOPHILS % (AUTO) 0.3 % (0.0-2.0); EOSINOPHILS # (AUTO) 0.2 K/uL (0-0.4); EOSINOPHILS % (AUTO) 1.7 % (0.0-4.0); HEMATOCRIT 30.4 % (36-48); HEMOGLOBIN 10.3 g/dL (12.0-16.0); LYMPHOCYTES # (AUTO) 1.8 K/uL (2.5-16.5); LYMPHOCYTES % (AUTO) 16.2 % (20.5-51.1); MEAN CORPUSCULAR HEMOGLOBIN 28 pg (27-31); MEAN CORPUSCULAR HGB CONC 34 g/dL (33-37); MEAN CORPUSCULAR VOLUME 81.2 fL (80-94); MONOCYTES # (AUTO) 0.8 K/uL (0.8-1.0); NEUTROPHILS # (AUTO) 8.3 K/uL (1.8-7.7); NEUTROPHILS % (AUTO) 74.8 % (42.2-75.2); PLATELET COUNT (AUTO) 323 K/uL (140-450); RED BLOOD CELL COUNT(AUTO) 3.74 MIL/uL (4.20-5.40); RED CELL DISTRIBUTION WIDTH 18.2 % (11.6-13.7); WHITE BLOOD COUNT (AUTO) 11.1 K/uL (4.8-10.8)
[2024-01-17 07:46] LABS: ALBUMIN 2.3 g/dL (3.4-5.0); ANION GAP 12.1 (8-16); CALCIUM 8.7 mg/dL (8.5-10.1); CARBON DIOXIDE 25.5 mmol/L (21-32); CREATININE 0.8 mg/dL (0.6-1.3); POTASSIUM 3.6 mmol/L (3.5-5.1); TOTAL BILIRUBIN 0.6 mg/dL (0.0-1.0); TOTAL PROTEIN, SERUM 6.5 g/dL (6.4-8.2)
[2024-01-17 08:00] VITALS: PULSE 80; RESP 18; O2SAT 98
[2024-01-17] MEDS: DOCUSATE SODIUM 250 MG GELCAP PO SCH (08:54)
[2024-01-17] MEDS: ENOXAPARIN 40 MG/0.4 ML SYR SUBQ SCH (08:56)
[2024-01-17] MEDS ORDERED: LACTULOSE 20 GM/30 ML UDC PO PRN (15:04)
[2024-01-17 16:00] VITALS: BP 153/63; PULSE 80; RESP 18; TEMP 98.1; O2SAT 100
[2024-01-17 16:28] LABS: LACTIC ACID 2.4 mmol/L (0.4-2.0)
[2024-01-17] MEDS ORDERED: NACL 0.9% 2,000 ML IV ONE (17:40)
[2024-01-17] MEDS: NACL 0.9% 2,000 ML IV SCH (17:59)
[2024-01-17 20:00] VITALS: BP 160/69; PULSE 74; RESP 18; TEMP 97.1; O2SAT 99
[2024-01-17] MEDS: INSULIN LANTUS 100 UNITS/ML 10 ML VIAL SUBQ SCH (20:29)
[2024-01-17] MEDS: HYDROcodone/APAP 5/325 MG 1 TAB TAB PO PRN (20:47)
[2024-01-18 04:00] VITALS: BP 152/76; PULSE 70; RESP 19; TEMP 97.3; O2SAT 96
[2024-01-18 07:35] LABS: BASOPHILS # (AUTO) 0.1 K/uL (0.00-0.22); BASOPHILS % (AUTO) 0.6 % (0.0-2.0); EOSINOPHILS # (AUTO) 0.2 K/uL (0-0.4); EOSINOPHILS % (AUTO) 1.8 % (0.0-4.0); HEMATOCRIT 30.9 % (36-48); HEMOGLOBIN 10.3 g/dL (12.0-16.0); LYMPHOCYTES % (AUTO) 20.6 % (20.5-51.1); MEAN CORPUSCULAR HEMOGLOBIN 27 pg (27-31); MEAN CORPUSCULAR HGB CONC 34 g/dL (33-37); MEAN CORPUSCULAR VOLUME 81.9 fL (80-94); MONOCYTES # (AUTO) 0.7 K/uL (0.8-1.0); MONOCYTES % (AUTO) 7.3 % (1.7-9.3); NEUTROPHILS # (AUTO) 6.8 K/uL (1.8-7.7); NEUTROPHILS % (AUTO) 69.7 % (42.2-75.2); PLATELET COUNT (AUTO) 298 K/uL (140-450); RED BLOOD CELL COUNT(AUTO) 3.78 MIL/uL (4.20-5.40); RED CELL DISTRIBUTION WIDTH 18.6 % (11.6-13.7); WHITE BLOOD COUNT (AUTO) 9.7 K/uL (4.8-10.8)
[2024-01-18 08:00] VITALS: PULSE 63; RESP 18; O2SAT 99
[2024-01-18 08:10] LABS: ALBUMIN 2.2 g/dL (3.4-5.0); ANION GAP 12.2 (8-16); CALCIUM 8.8 mg/dL (8.5-10.1); CREATININE 0.6 mg/dL (0.6-1.3); POTASSIUM 3.2 mmol/L (3.5-5.1); TOTAL BILIRUBIN 0.5 mg/dL (0.0-1.0); TOTAL PROTEIN, SERUM 6.6 g/dL (6.4-8.2)
[2024-01-18] MEDS: POTASSIUM CHLORIDE 10 MEQ TABER PO SCH ×2 (09:49→15:27)
[2024-01-18] MEDS: LOSARTAN 50 MG TAB PO SCH (11:00)
[2024-01-18] MEDS ORDERED: NYSTATIN POW 100 MU/GM 15 GM BTL TP PRN (12:40)
[2024-01-18] MEDS ORDERED: FOAM DRESSING TP PRN (12:40)
[2024-01-18] MEDS ORDERED: THERAHONEY GEL 42.5 GM TP PRN (12:40)
[2024-01-18] MEDS: FOAM DRESSING TP SCH (13:45)
[2024-01-18] MEDS: THERAHONEY GEL 42.5 GM TP SCH (13:50)
[2024-01-18] MEDS: NYSTATIN POW 100 MU/GM 15 GM BTL TP SCH (13:51)
[2024-01-18] MEDS ORDERED: LACT1CAP81 PO (15:19)
[2024-01-18] MEDS ORDERED: LEVO750T75 PO (15:19)
[2024-01-18] MEDS: INSULIN LANTUS 100 UNITS/ML 10 ML VIAL SUBQ SCH (16:10)
[2024-01-18 16:41] VITALS: BP 146/72; PULSE 70; RESP 18; TEMP 98
[2024-01-18] MEDS ORDERED: INSULIN LANTUS 100 UNITS/ML 10 ML VIAL SUBQ SCH (21:00)
== END 2024-01-18 19:50 | disposition home or self-care (01) | DRG 720 ==
LOC: MED 08:13 → MMU 13:27 → MTU 16:36
PROVIDERS: ADMIT Internal Medicine; ATTEND Internal Medicine
DX: A41.9 Sepsis, unspecified organism (principal); E87.20 Acidosis, unspecified; E43 Unspecified severe protein-calorie malnutrition; D63.8 Anemia in other chronic diseases classified elsewhere; L97.919 Non-pressure chronic ulcer of unspecified part of right lower leg with unspecified severity; E11.622 Type 2 diabetes mellitus with other skin ulcer; L03.115 Cellulitis of right lower limb; Z68.26 Body mass index [BMI] 26.0-26.9, adult; Z79.4 Long term (current) use of insulin; Z90.49 Acquired absence of other specified parts of digestive tract; Z98.891 History of uterine scar from previous surgery; Z79.899 Other long term (current) drug therapy
CPT/HCPCS: 36415; 73590; 80048; 80053; 80076; 80202; 82948; 83605; 85025; 87040; 87070; 87075; 87081; 87205; 96361; 96365; 96375; 99285; J1650; J1815; J2270; J2405; J2543; J3370; J7030; J7060

== ENCOUNTER 2024-01-23 20:02 | Emergency (ER) | payer MEDICAID ==
[~2024-01-23] VITALS: Ht 160 cm; Wt 68.0 kg
[~2024-01-23 20:02] MED LIST changes: -CEPH500C16 PO; +LACT1CAP81 PO; +LEVO750T75 PO; -SULF-59 PO
[2024-01-23 20:15] VITALS: BP 113/57; PULSE 86; RESP 17; TEMP 98.1; O2SAT 100
[2024-01-23] MEDS ORDERED: BACITRACIN OINT 500 UNITS/GM PKT TP ONE (22:22)
[2024-01-23 22:32] VITALS: BP 113/57; PULSE 86; RESP 17; TEMP 98.1; O2SAT 100
== END 2024-01-23 22:52 | disposition home or self-care (01) ==
LOC: MED 20:02
DX: S81.831A Puncture wound without foreign body, right lower leg, initial encounter (principal); L02.415 Cutaneous abscess of right lower limb; I10 Essential (primary) hypertension; E11.9 Type 2 diabetes mellitus without complications; Z79.4 Long term (current) use of insulin; Z79.899 Other long term (current) drug therapy; X58.XXXA Exposure to other specified factors, initial encounter; Y93.89 Activity, other specified; Y92.89 Other specified places as the place of occurrence of the external cause; Y99.8 Other external cause status
CPT/HCPCS: 99282

== ENCOUNTER 2024-01-30 20:10 | Inpatient (IN) | payer MEDICAID ==
[~2024-01-30] VITALS: Ht 160 cm; Wt 68.0 kg
[2024-01-30 20:40] VITALS: BP 116/61; PULSE 92; RESP 18; TEMP 97.7; O2SAT 100
[2024-01-30] MEDS: NACL 0.9% 1,000 ML IV ONE (21:18)
[2024-01-30 21:41] LABS: ANION GAP 15.4 (8-16); CALCIUM 9.8 mg/dL (8.5-10.1); CREATININE 1.1 mg/dL (0.6-1.3); POTASSIUM 5.4 mmol/L (3.5-5.1)
[2024-01-30 22:09] LABS: BASOPHILS # (AUTO) 0.1 K/uL (0.00-0.22); BASOPHILS % (AUTO) 0.9 % (0.0-2.0); EOSINOPHILS # (AUTO) 0.2 K/uL (0-0.4); EOSINOPHILS % (AUTO) 2.1 % (0.0-4.0); HEMATOCRIT 37.4 % (36-48); HEMOGLOBIN 12.6 g/dL (12.0-16.0); LYMPHOCYTES # (AUTO) 2.4 K/uL (2.5-16.5); LYMPHOCYTES % (AUTO) 26.1 % (20.5-51.1); MEAN CORPUSCULAR HEMOGLOBIN 28 pg (27-31); MEAN CORPUSCULAR HGB CONC 34 g/dL (33-37); MEAN CORPUSCULAR VOLUME 82.1 fL (80-94); MONOCYTES # (AUTO) 0.5 K/uL (0.8-1.0); MONOCYTES % (AUTO) 5.7 % (1.7-9.3); NEUTROPHILS # (AUTO) 6.1 K/uL (1.8-7.7); NEUTROPHILS % (AUTO) 65.2 % (42.2-75.2); PLATELET COUNT (AUTO) 305 K/uL (140-450); RED BLOOD CELL COUNT(AUTO) 4.55 MIL/uL (4.20-5.40); RED CELL DISTRIBUTION WIDTH 17.8 % (11.6-13.7); WHITE BLOOD COUNT (AUTO) 9.3 K/uL (4.8-10.8)
[2024-01-30] MEDS ORDERED: PIPERACILLIN/TAZOBACTAM 3.375 GM VIAL IV ONE (22:45)
[2024-01-30] MEDS: INSULIN REGULAR, HUMAN 100 UNIT/ML VIAL IVP ONE (23:13)
[2024-01-30] MEDS: MORPHINE SULFATE 4 MG/ML SYR IVP ONE (23:15)
[2024-01-30] MEDS: PIPERACILLIN/TAZOBACTAM 3.375 GM in DEXTROSE 5% 50 ML IV ONE (23:15)
[2024-01-30] MEDS ORDERED: ONDANSETRON 4 MG/2 ML VIAL IVP PRN (23:45)
[2024-01-30] MEDS ORDERED: ACETAMINOPHEN 325 MG TAB PO PRN (23:45)
[2024-01-30] MEDS ORDERED: VANCOMYCIN PER PHARMACY MC PRN (23:45)
[2024-01-30] MEDS ORDERED: DEXTROSE 50% 50 ML SYR IVP PRN (23:45)
[2024-01-31 00:20] VITALS: BP 117/54; PULSE 86; RESP 18; TEMP 97.8; O2SAT 96
[2024-01-31] MEDS ORDERED: LANTUS SUBQ (00:54)
[2024-01-31] MEDS: NACL 0.9% 1,000 ML IV SCH (01:14)
[2024-01-31] MEDS: VANCOMYCIN 1,000 MG VIAL ONE (01:15)
[2024-01-31] MEDS: VANCOMYCIN 1GM/DEXT 5% PREMIX 200 ML IV ONE (01:22)
[2024-01-31 01:26] VITALS: O2SAT 96
[2024-01-31 04:00] VITALS: BP 116/61; PULSE 79; RESP 18; TEMP 97.5; O2SAT 96
[2024-01-31] MEDS: PIPERACILLIN/TAZOBACTAM 3.375 GM VIAL IV ONE (04:45)
[2024-01-31] MEDS: PIPERACILLIN/TAZOBACTAM 3.375 GM in DEXTROSE 5% 50 ML IV SCH (04:46)
[2024-01-31] MEDS: BLOOD GLUCOSE MONITORING 1 DEV DEV FS SCH (07:43)
[2024-01-31] MEDS: INSULIN LISPRO SLIDING SCALE 100 UNITS/ML VIAL SUBQ PRN (07:49)
[2024-01-31 08:00] VITALS: BP 124/55; PULSE 76; RESP 18; TEMP 97; O2SAT 100
[2024-01-31] MEDS: ENOXAPARIN 40 MG/0.4 ML SYR SUBQ SCH (08:44)
[2024-01-31 10:13] LABS: BASOPHILS # (AUTO) 0.1 K/uL (0.00-0.22); BASOPHILS % (AUTO) 0.8 % (0.0-2.0); EOSINOPHILS # (AUTO) 0.3 K/uL (0-0.4); EOSINOPHILS % (AUTO) 3.1 % (0.0-4.0); HEMATOCRIT 34.1 % (36-48); HEMOGLOBIN 11.6 g/dL (12.0-16.0); LYMPHOCYTES # (AUTO) 2.8 K/uL (2.5-16.5); LYMPHOCYTES % (AUTO) 29.5 % (20.5-51.1); MEAN CORPUSCULAR HEMOGLOBIN 28 pg (27-31); MEAN CORPUSCULAR HGB CONC 34 g/dL (33-37); MONOCYTES # (AUTO) 0.6 K/uL (0.8-1.0); MONOCYTES % (AUTO) 6.8 % (1.7-9.3); NEUTROPHILS # (AUTO) 5.6 K/uL (1.8-7.7); NEUTROPHILS % (AUTO) 59.8 % (42.2-75.2); PLATELET COUNT (AUTO) 272 K/uL (140-450); RED BLOOD CELL COUNT(AUTO) 4.17 MIL/uL (4.20-5.40); RED CELL DISTRIBUTION WIDTH 17.5 % (11.6-13.7); WHITE BLOOD COUNT (AUTO) 9.4 K/uL (4.8-10.8)
[2024-01-31 12:04] LABS: CALCIUM 9.2 mg/dL (8.5-10.1); CREATININE 0.6 mg/dL (0.6-1.3)
[2024-01-31 12:07] LABS: ANION GAP 11.5 (8-16); POTASSIUM 4.5 mmol/L (3.5-5.1)
[2024-01-31] MEDS: HYDROcodone/APAP 5/325 MG 1 TAB TAB PO PRN (13:12)
[2024-01-31] MEDS: VANCOMYCIN 750 MG in NACL 0.9% 250 ML IV SCH (15:25)
[2024-01-31 16:00] VITALS: BP 113/52; PULSE 73; RESP 18; TEMP 97.5; O2SAT 98
[2024-01-31 20:00] VITALS: BP 111/56; PULSE 76; PULSE 78; RESP 18; TEMP 97.6; O2SAT 100; O2SAT 98
[2024-01-31] MEDS: INSULIN LANTUS 100 UNITS/ML 10 ML VIAL SUBQ SCH (22:13)
[2024-02-01 04:00] VITALS: BP 130/56; PULSE 76; RESP 18; TEMP 97.4; O2SAT 98
[2024-02-01 05:43] LABS: ANION GAP 14.5 (8-16); CALCIUM 9.4 mg/dL (8.5-10.1); CARBON DIOXIDE 23.7 mmol/L (21-32); CREATININE 0.6 mg/dL (0.6-1.3); POTASSIUM 4.2 mmol/L (3.5-5.1)
[2024-02-01 08:00] VITALS: BP 119/68; PULSE 72; RESP 18; TEMP 98.7; O2SAT 98
[2024-02-01] MEDS ORDERED: FUROSEMIDE 40 MG TAB PO SCH (09:00)
[2024-02-01 09:32] LABS: BASOPHILS # (AUTO) 0.1 K/uL (0.00-0.22); EOSINOPHILS # (AUTO) 0.3 K/uL (0-0.4); EOSINOPHILS % (AUTO) 3.4 % (0.0-4.0); HEMATOCRIT 34.3 % (36-48); HEMOGLOBIN 11.4 g/dL (12.0-16.0); LYMPHOCYTES # (AUTO) 2.8 K/uL (2.5-16.5); MEAN CORPUSCULAR HEMOGLOBIN 27 pg (27-31); MEAN CORPUSCULAR HGB CONC 33 g/dL (33-37); MEAN CORPUSCULAR VOLUME 82.5 fL (80-94); MONOCYTES # (AUTO) 0.5 K/uL (0.8-1.0); MONOCYTES % (AUTO) 6.1 % (1.7-9.3); NEUTROPHILS # (AUTO) 4.6 K/uL (1.8-7.7); NEUTROPHILS % (AUTO) 55.5 % (42.2-75.2); PLATELET COUNT (AUTO) 262 K/uL (140-450); RED BLOOD CELL COUNT(AUTO) 4.16 MIL/uL (4.20-5.40); RED CELL DISTRIBUTION WIDTH 17.6 % (11.6-13.7); WHITE BLOOD COUNT (AUTO) 8.2 K/uL (4.8-10.8)
[2024-02-01] MEDS ORDERED: CLIN150C1 PO (09:32)
[2024-02-01] MEDS ORDERED: HYDRAGUARD CREAM TP PRN (11:00)
[2024-02-01] MEDS ORDERED: COMPOSITE DRESSING TP PRN (11:00)
[2024-02-01 12:56] VITALS: BP 119/68; PULSE 72; RESP 18; TEMP 98.7
[2024-02-01] MEDS: COMPOSITE DRESSING TP SCH (13:31)
[2024-02-01] MEDS: HYDRAGUARD CREAM TP SCH (13:31)
[2024-02-01] MEDS ORDERED: VANCOMYCIN 750 MG in NACL 0.9% 250 ML IV SCH (17:00)
== END 2024-02-01 15:30 | disposition home health service (06) | DRG 720 ==
LOC: MED 20:10 → MTU 23:41
PROVIDERS: ADMIT Family Medicine; ATTEND Family Medicine
DX: A41.9 Sepsis, unspecified organism (principal); N17.0 Acute kidney failure with tubular necrosis; E11.9 Type 2 diabetes mellitus without complications; E87.1 Hypo-osmolality and hyponatremia; L03.115 Cellulitis of right lower limb; S81.801A Unspecified open wound, right lower leg, initial encounter; I10 Essential (primary) hypertension; X58.XXXA Exposure to other specified factors, initial encounter; Z91.148 Patient's other noncompliance with medication regimen for other reason; Y93.89 Activity, other specified; Y92.89 Other specified places as the place of occurrence of the external cause; Y99.8 Other external cause status
CPT/HCPCS: 36415; 80048; 82948; 83036; 85025; 85651; 86140; 87081; 96374; 96375; 97116; 97163-GP; 99285; J1650; J1815; J2270; J2543; J3370; J7030; J7060

== ENCOUNTER 2024-02-28 08:11 | Emergency (ER) | payer MEDICAID ==
[~2024-02-28] VITALS: Ht 160 cm; Wt 72.6 kg
[~2024-02-28 08:11] MED LIST changes: +CLIN150C1 PO; +LANTUS SUBQ; -LEVO750T75 PO
[2024-02-28 08:13] VITALS: BP 133/72; PULSE 81; RESP 18; TEMP 97.1; O2SAT 100
[2024-02-28] MEDS: HYDROcodone/APAP 5/325 MG 1 TAB TAB PO ONE (08:43)
[2024-02-28] MEDS ORDERED: ACET-8905 PO (08:50)
[2024-02-28] MEDS ORDERED: NAPR-1704 PO (08:51)
[2024-02-28 09:37] VITALS: BP 131/68; PULSE 79; RESP 14; TEMP 97.1; O2SAT 95
[2024-02-28] MEDS ORDERED: [UNRECOGNIZED DRUG - CODE] TP (09:58)
== END 2024-02-28 09:37 | disposition home or self-care (01) ==
LOC: MED 08:11
DX: G89.29 Other chronic pain (principal); M25.571 Pain in right ankle and joints of right foot; L97.319 Non-pressure chronic ulcer of right ankle with unspecified severity; E11.621 Type 2 diabetes mellitus with foot ulcer; I10 Essential (primary) hypertension; F17.210 Nicotine dependence, cigarettes, uncomplicated; Z90.49 Acquired absence of other specified parts of digestive tract; Z79.4 Long term (current) use of insulin; Z79.84 Long term (current) use of oral hypoglycemic drugs; Z79.1 Long term (current) use of non-steroidal anti-inflammatories (NSAID); Z79.899 Other long term (current) drug therapy; Z79.2 Long term (current) use of antibiotics
CPT/HCPCS: 73610; 99283

== ENCOUNTER 2024-03-26 20:42 | Emergency (ER) | payer MEDICAID ==
[~2024-03-26] VITALS: Ht 160 cm; Wt 72.6 kg
[~2024-03-26 20:42] MED LIST changes: +ACET-8905 PO; +NAPR-1704 PO; +[UNRECOGNIZED DRUG - CODE] TP
[2024-03-26 21:20] VITALS: BP 125/77; PULSE 88; RESP 18; TEMP 97.8; O2SAT 99
[2024-03-26 21:57] LABS: APPEARANCE,URINE CLOUDY (CLEAR); COLOR,URINE BROWN (YELLOW); PROTEIN,URINE 2+ (NEGATIVE); UGLUCOSE 3+ (NEGATIVE)
[2024-03-26 21:58] LABS: BILIRUBIN,URINE 1+ (NEGATIVE); BLOOD, URINE 3+ (NEGATIVE); LEUKOCYTE ESTERASE ,URINE 1+ (NEGATIVE); NITRITE, URINE POSITIVE (NEGATIVE); UROBILINOGEN,URINE 0.2 EU/dL (0.2 - 1)
[2024-03-26 21:59] LABS: BACTERIA,URINE >30 (MANY) /HPF (None Seen); ICTOTEST NEGATIVE (NEGATIVE); RBC,URINE TOO NUMEROUS TO COUN /HPF (0-5); SQUAMOUS EPITHELIAL CELL,UR 0-3 (FEW) /LPF (0-3 (FEW))
[2024-03-26 22:37] VITALS: O2SAT 98
[2024-03-26] MEDS ORDERED: CEPH-588 PO (23:14)
[2024-03-26] MEDS ORDERED: ROB PO (23:14)
== END 2024-03-26 23:30 | disposition home or self-care (01) ==
LOC: MED 20:42 → UNDOADMIN 22:51 → MMU 22:51 → MED 23:30
DX: N39.0 Urinary tract infection, site not specified (principal); J20.9 Acute bronchitis, unspecified; E11.9 Type 2 diabetes mellitus without complications; Z90.49 Acquired absence of other specified parts of digestive tract; Z98.890 Other specified postprocedural states; Z79.4 Long term (current) use of insulin; Z79.84 Long term (current) use of oral hypoglycemic drugs; Z79.1 Long term (current) use of non-steroidal anti-inflammatories (NSAID); Z79.2 Long term (current) use of antibiotics; Z79.899 Other long term (current) drug therapy
CPT/HCPCS: 71045; 81001; 87086; 99284

== ENCOUNTER 2024-04-07 03:55 | Emergency (ER) | payer MEDICAID ==
[~2024-04-07] VITALS: Ht 160 cm; Wt 70.3 kg
[~2024-04-07 03:55] MED LIST changes: +CEPH-588 PO; +ROB PO
[2024-04-07 04:02] VITALS: BP 125/68; PULSE 87; RESP 20; TEMP 98; O2SAT 98
[2024-04-07 05:26] VITALS: TEMP 98
[2024-04-07 07:01] LABS: BASOPHILS # (AUTO) 0.1 K/uL (0.00-0.22); BASOPHILS % (AUTO) 0.5 % (0.0-2.0); EOSINOPHILS # (AUTO) 0.2 K/uL (0-0.4); EOSINOPHILS % (AUTO) 2.1 % (0.0-4.0); HEMATOCRIT 37.8 % (36-48); LYMPHOCYTES # (AUTO) 2.4 K/uL (2.5-16.5); LYMPHOCYTES % (AUTO) 24.1 % (20.5-51.1); MEAN CORPUSCULAR HEMOGLOBIN 29 pg (27-31); MEAN CORPUSCULAR HGB CONC 34 g/dL (33-37); MEAN CORPUSCULAR VOLUME 84.1 fL (80-94); MONOCYTES # (AUTO) 0.7 K/uL (0.8-1.0); NEUTROPHILS # (AUTO) 6.6 K/uL (1.8-7.7); NEUTROPHILS % (AUTO) 66.3 % (42.2-75.2); PLATELET COUNT (AUTO) 204 K/uL (140-450)
[2024-04-07 07:02] VITALS: BP 147/68; PULSE 80; RESP 17; O2SAT 96
[2024-04-07 07:16] LABS: ANION GAP 11.2 (8-16); CALCIUM 8.9 mg/dL (8.5-10.1); CARBON DIOXIDE 27.6 mmol/L (21-32); CREATININE 0.7 mg/dL (0.6-1.3); POTASSIUM 3.8 mmol/L (3.5-5.1)
[2024-04-07 07:30] LABS: ALANINE AMINOTRANSFERASE 17 U/L (12-78); ALKALINE PHOSPHATASE 258 U/L (50-136); ASPARTATE AMINOTRANSFERASE 14 U/L (15-37); BILIRUBIN,DIRECT 0.1 mg/dL (0.0-0.3); TOTAL BILIRUBIN 0.3 mg/dL (0.0-1.0); TOTAL PROTEIN, SERUM 6.8 g/dL (6.4-8.2)
[2024-04-07] MEDS ORDERED: ALBU0.0912 IH (08:31)
== END 2024-04-07 08:30 | disposition left against medical advice (07) ==
LOC: MED 03:55
DX: E11.65 Type 2 diabetes mellitus with hyperglycemia (principal); R05.9 Cough, unspecified; I10 Essential (primary) hypertension; F17.200 Nicotine dependence, unspecified, uncomplicated; Z90.49 Acquired absence of other specified parts of digestive tract; Z79.4 Long term (current) use of insulin; Z79.84 Long term (current) use of oral hypoglycemic drugs; Z79.2 Long term (current) use of antibiotics; Z79.899 Other long term (current) drug therapy
CPT/HCPCS: 36415; 71045; 80048; 80076; 83880; 84484; 85025; 93005; 99285

== ENCOUNTER 2024-05-04 20:36 | Emergency (ER) | payer MEDICAID ==
[~2024-05-04] VITALS: Ht 162.6 cm; Wt 72.6 kg
[~2024-05-04 20:36] MED LIST changes: +ALBU0.0912 IH
[2024-05-04 20:47] VITALS: BP 129/65; PULSE 87; RESP 18; TEMP 97.8; O2SAT 94
[2024-05-04 20:58] VITALS: BP 129/65; PULSE 87; RESP 18; TEMP 97.8
[2024-05-04 21:01] VITALS: O2SAT 97
[2024-05-04] MEDS ORDERED: IBUP-1842 PO (21:10)
[2024-05-04] MEDS ORDERED: CEPH-588 PO (21:10)
[2024-05-05] MEDS ORDERED: CEPH-588 PO (01:00)
== END 2024-05-04 21:18 | disposition home or self-care (01) ==
LOC: MED 20:36
DX: L03.011 Cellulitis of right finger (principal); E11.9 Type 2 diabetes mellitus without complications; Z79.1 Long term (current) use of non-steroidal anti-inflammatories (NSAID); Z79.2 Long term (current) use of antibiotics; Z79.899 Other long term (current) drug therapy
CPT/HCPCS: 99283

== ENCOUNTER 2024-06-07 12:33 | Emergency (ER) | payer MEDICAID ==
[~2024-06-07] VITALS: Ht 160 cm; Wt 72.6 kg
[~2024-06-07 12:33] MED LIST changes: -ACET-10509 PO; +ACET500T99 PO; +IBUP-1842 PO
[2024-06-07 12:34] VITALS: BP 112/50; PULSE 90; RESP 20; TEMP 98.8; O2SAT 99
[2024-06-07 12:55] VITALS: O2SAT 99
[2024-06-07 13:46] LABS: BILIRUBIN,URINE 1+ (NEGATIVE); BLOOD, URINE 3+ (NEGATIVE); LEUKOCYTE ESTERASE ,URINE TRACE (NEGATIVE); NITRITE, URINE POSITIVE (NEGATIVE); PROTEIN,URINE 3+ (NEGATIVE); UGLUCOSE 3+ (NEGATIVE)
[2024-06-07 13:49] LABS: APPEARANCE,URINE CLOUDY (CLEAR)
[2024-06-07 13:50] LABS: COLOR,URINE AMBER (YELLOW)
[2024-06-07 14:03] LABS: ICTOTEST NEGATIVE (NEGATIVE)
[2024-06-07 14:04] LABS: BACTERIA,URINE 4+ /HPF (None Seen); RBC,URINE TOO NUMEROUS TO COUN /HPF (0-5); WBC,URINE TOO MANY TO COUNT /HPF (0-5)
[2024-06-07 14:05] LABS: MUCUS,URINE 2+ /LPF (None Seen); SQUAMOUS EPITHELIAL CELL,UR 0-3 (FEW) /LPF (0-3 (FEW))
[2024-06-07] MEDS ORDERED: PYR100 PO (14:06)
[2024-06-07] MEDS ORDERED: CIPR500T4 PO (14:06)
== END 2024-06-07 14:12 | disposition home or self-care (01) ==
LOC: MED 12:33
DX: N39.0 Urinary tract infection, site not specified (principal); E11.9 Type 2 diabetes mellitus without complications; Z90.49 Acquired absence of other specified parts of digestive tract; Z79.899 Other long term (current) drug therapy; Z79.4 Long term (current) use of insulin
CPT/HCPCS: 81001; 87086; 87186; 99283

== ENCOUNTER → 2024-07-31 | Emergency (ER) | payer MEDICAID ==
[~2024-07-31] VITALS: Ht 162.6 cm; Wt 73.9 kg
[~2024-07-31] MED LIST changes: +BENZ200C4 PO; +CIPR500T4 PO; +PYR100 PO
[2024-07-31 20:01] VITALS: BP 142/53; PULSE 93; RESP 18; TEMP 98; O2SAT 98
[2024-07-31 20:22] VITALS: O2SAT 99
[2024-07-31 20:38] VITALS: O2SAT 98
== END | disposition home or self-care (01) ==
LOC: MED 19:47
DX: J41.0 Simple chronic bronchitis (principal); N63.20 Unspecified lump in the left breast, unspecified quadrant; E11.9 Type 2 diabetes mellitus without complications; F17.210 Nicotine dependence, cigarettes, uncomplicated; Z71.6 Tobacco abuse counseling; Z79.4 Long term (current) use of insulin; Z79.899 Other long term (current) drug therapy
CPT/HCPCS: 71045; 76641; 99284; 99406; Q0092